=== PATIENT | male | born 1995 | race Caucasian/White ===

== ENCOUNTER 2019-07-02 10:29 | Emergency (ER) | payer SELFPAY ==
[2019-07-02] VITALS (10 sets, daily range): BP systolic 152–180; BP diastolic 98–123; PULSE 93–105; RESP 17–20; TEMP 36.8; O2SAT 96–100; BMI 41.8
--- NOTE | 2019-07-02 10:38 | CT_ITS ---
WS: [id number] CT ABDOMEN PELVIS TECHNIQUE: Noncontrast CT of the abdomen and pelvis with coronal and sagittal reformatted images. CLINICAL INFORMATION: right flank pain COMPARISON: None. DLP: 1825.[address] scans at [facility] use at least one of these dose optimization techniques: automat ed exposure control; mA and/or kV adjustment per patient size (includes targeted exams where dose is matched to clinical indication); or iterative reconstruction. FINDINGS: Noncontrast liver is normal. Normal gallbladder. Noncontrast spleen is normal. Normal GE junction. Jasmyn ng bases are well aerated. Noncontrast pancreas is unremarkable. Adrenal glands are normal. Mild right hydronephrosis with inflammatory stranding. Mild right ureterectasis with inflammatory str anding about the right ureter. Ureter is dilated down to the UVJ. No visualized obstructing ureteral calculi. Calculus may have recently passed. Bladder is decompressed. No visualized calculi in the melo dder. Left kidney and ureter are normal. No hydronephrosis in the left kidney. Normal caliber abdominal aorta. No abdominal lymphadenopathy. No pelvic lymphadenopathy. Normal sigmo id colon. Normal appendix. Incidental fat-containing umbilical hernia. CT/CT kidney stone [id number] IMPRESSION: 1. Mild right hydronephrosis with inflammatory stranding about the right kidne y. Mild right ureterectasis with inflammatory stranding about the right ureter. Ureter is dilated down to the UVJ although no obstructing calculi visualized. Obstructing calculus likely recently passed. 2. Normal left kidney and ureter. Normal bladder. 3. Normal appendix.
--- NOTE | 2019-07-02 10:39 | ED_ITS ---
HPI - Abdominal Pain General: Chief Complaint: Abdominal Pain Stated Complaint: RIGHT SIDE AND GROIN PAIN Time Seen by Provider: 07/02/19 10:38 Source: patient Mode of arrival: ambulatory Limitations: no limitations Review of Systems General: Reports: 10 or more systems reviewed and unremarkable except in HPI and below PFSH ED PFSH: Social History Smoking and tobacco status: never smoked Current gender identity: Female Physical Exam Const: COMMON NORMALS: no apparent distress and oriented x3 GENERAL APPEARANCE: cooperative HENMT: COMMON NORMALS: normocephalic, TM's normal bilaterally and external nose normal HEAD & SCALP: normal to inspection and normocephalic NOSE: external nose normal TYMPANIC MEMBRANE: TM's normal bilaterally MOUTH: oral and palatal mucosa normal THROAT: posterior oropharynx normal Eye: GENERAL EYE: normal appearance of both eyes Neck/C-Spine: COMMON NORMALS: full ROM Lymph: LYMPHATIC: no lymphadenopathy noted Chest: COMMONS NORMALS: inspection of chest normal Resp: COMMON NORMALS: normal respiratory effort EFFORT & INSPECTION: Yes able to speak in complete sentences Cardio: COMMON NORMALS: regular rate and regular rhythm RATE: regular rate RHYTHM: regular rhythm GI: COMMON NORMALS: non-tender : COMMON NORMALS: Yes no CVA tenderness BLADDER/KIDNEY EXAM: Yes no CVA tenderness Back/Pelvis: COMMON NORMALS: no CVA tenderness and thoracic and lumbar spine normal to inspection Extremity: COMMON NORMALS: normal to inspection Neuro: COMMON NORMALS: oriented x3 and moves all extremities Psych: COMMON NORMALS: mental status grossly normal and cooperative Skin: COMMON NORMALS: no rashes or lesions noted GENERAL SKIN EXAM: no rashes or lesions noted Course Vital Signs: Vital signs: Vital Signs Temperature 98.3 F 07/02/19 10:37 Pulse Rate 95 07/02/19 10:37 Respiratory Rate 20 H 07/02/19 10:37 Blood Pressure 179/123 07/02/19 10:37 Pulse Oximetry 99 07/02/19 10:37 Coding Level of Care Code ED Work Station Support Specialist for Eulalio Nathan
[2019-07-02 10:47] LABS: Basophils % 0.2 %; Eosinophils % 0.3 %; Hematocrit 47.8 % (42.0-52.0); Hemoglobin 16.4 g/dL (11.7-16.6); Lymphocytes # 1.6 10^3/uL (0.8-4.8); Lymphocytes % 12.3 %; Mean Corpuscular HGB Conc 34.3 g/dL (30.0-36.0); Mean Corpuscular Hemoglobin 28.7 pg (28.0-34.0); Mean Corpuscular Volume 83.6 fL (80-94); Mean Platelet Volume 10.8 fL (7.4-10.4); Monocytes # 0.3 10^3/uL (0.2-0.9); Monocytes % 2.6 %; Neutrophils % 84.2 %; Nucleated Red Blood Cells % 0 %; Platelet Count 295 10^3/cmm (130-400); Red Blood Count 5.72 10^6/uL (4.1-5.3); Red Cell Distribution Width 11.9 % (12.1-15.1); White Blood Count 13.1 10^3/uL (4.0-10.0)
--- NOTE | 2019-07-02 10:49 | ED_ITS ---
Documented by User: Ghulam Moulton DO 07/02/19 14:53 HPI - Abdominal Pain General: Chief Complaint: Abdominal Pain Stated Complaint: RIGHT SIDE AND GROIN PAIN Time Seen by Provider: 07/02/19 10:38 History of Present Illness: HPI narrative: 23 yo male present to the ER with onset of R flank pain radiatiing into the R groin began suddenly this AM. HE denies any hematuria, pain is worse with urination. He has not previosuly had kidney stones. No other recent illnesses. Denies resp illnes symtpoms, cough or fever. MD elicited complaint: flank pain Pertinent past history: none Onset (ago): hour(s) Pain Consistency: constant Location: R flank Severity: severe Pain scale (0-10): 10 Quality: stabbing and sharp Radiation: other (R groin) Associated Symptoms: Reports dysuria; Denies bloating, chills, coffee ground emesis, constipation, diarrhea, fever(s), hematochezia, hematemesis, melena, nausea and vomiting Review of Systems Const: Denies: fever, chills, body aches, change in appetite, fatigue or malaise ENMT: Denies: throat pain, ear pain, nasal discharge or nasal congestion Card: Denies: chest pain, edema, shortness of breath on exertion or shortness of breath when lying down Resp: Denies: shortness of breath, productive cough or non-productive cough GI: Denies: abdominal pain, nausea, vomiting, vomiting blood, coffee grounds in vomit, diarrhea, constipation, bloating, blood in stool or black tarry stool : Reports: flank pain and painful urination; Denies: urinary frequency or urinary urgency Skin/Breast: Denies: rash or itching [facility] ED PFSH: Social History (Updated 07/02/19 @ 14:52 by Ghulam Moulton DO) Smoking and tobacco status: never smoked Current gender identity: Male Physical Exam Const: COMMON NORMALS: no apparent distress GENERAL APPEARANCE: cooperative and comfortable ORIENTATION/CONSCIOUSNESS: Yes awake, Yes oriented to person, Yes oriented to place and Yes oriented to time HENMT: COMMON NORMALS: normocephalic, head/scalp atraumatic, hearing grossly normal bilaterally, external ears normal, EAC's normal, TM's normal bilaterally, nasal mucous membranes and turbinates normal, moist oral mucous membranes and oropharynx normal HEAD & SCALP: normocephalic and atraumatic NOSE: nasal mucous membranes and turbinates normal EXTERNAL EAR: Yes external ears normal EXTERNAL AUDITORY CANAL: EAC's normal TYMPANIC MEMBRANE: TM's normal bilaterally Eye: COMMON NORMALS: PERRL, EOMs intact bilaterally, conjunctivae normal and no scleral icterus CONJUNCTIVA: Yes conjunctivae normal PUPIL: Yes PERRL Neck/C-Spine: COMMON NORMALS: full ROM, no lymphadenopathy, supple and no JVD Lymph: LYMPHATIC: no lymphadenopathy noted and no lymphedema noted Resp: COMMON NORMALS: normal respiratory effort, no retractions, no use of accessory muscles and clear to auscultation bilaterally AUSCULTATION: clear to auscultation bilaterally Cardio: COMMON NORMALS: no JVD, regular rate, regular rhythm and no murmurs RATE: regular rate RHYTHM: regular rhythm GI: COMMON NORMALS: soft to palpation and no hepatosplenomegaly AUSCULTATION: Yes normoactive bowel sounds PALPATION: Yes soft, No tender, No guarding and Yes no hepatosplenomegaly : BLADDER/KIDNEY EXAM: Yes CVA tenderness Back/Pelvis: GENERAL BACK: Yes CVA tenderness CVA tenderness: right Extremity: COMMON NORMALS: normal to inspection, normal capillary refill, no clubbing, cyanosis or edema, no calf tenderness and no pedal edema Neuro: SENSORIUM/ORIENTATION: Yes oriented to person, Yes oriented to place and Yes oriented to time Skin: COMMON NORMALS: no rashes or lesions noted GENERAL SKIN EXAM: no rashes or lesions noted Course Vital Signs: Vital signs: Vital Signs Temperature 98.3 F 07/02/19 10:37 Pulse Rate 105 H 07/02/19 13:23 Respiratory Rate 18 07/02/19 13:23 Blood Pressure 163/98 07/02/19 13:23 Pulse Oximetry 100 07/02/19 13:23 MDM - Abdominal Pain MDM Narrative: Medical decision making narrative: Pt present with symtpoms typical for nephrolithiasis CT is pending. CAre turned over to Dr. Araujo at change of shift. Lab Data: Labs: Lab Results 07/02/19 07/02/19 07/02/19 Range/Units 10:40 10:40 10:59 WBC 13.1 H (4.0-10.0) 10^3/ uL RBC 5.72 H (4.1-5.3) 10^6/u L Hgb 16.4 (11.7-16.6) g/dL Hct 47.8 (42.0-52.0) % MCV 83.6 (80-94) fL MCH 28.7 (28.0-34.0) pg MCHC 34.3 (30.0-36.0) g/dL RDW 11.9 L (12.1-15.1) % Plt Count 295 (130-400) 10^3/c mm MPV 10.8 H (7.4-10.4) fL Neut % (Auto) 84.2 % Lymph % (Auto) 12.3 % [place] % (Auto) 2.6 % Eos % (Auto) 0.3 % Baso % (Auto) 0.2 % Neut # (Auto) 11.0 H (1.8-7.7) 10^3/u L Lymph # (Auto) 1.6 (0.8-4.8) 10^3/u L [place] # (Auto) 0.3 (0.2-0.9) 10^3/u L Eos # (Auto) 0.0 (0.0-0.8) 10^3/u L Baso # (Auto) 0.0 (0.0-0.1) 10^3/u L Nucleated RBC % (a uto) 0 % Nucleated RBCs # 0.0 /100WBC Sodium 138 (136-145) mmol/L Potassium 3.6 (3.5-5.1) mmol/L Chloride 103 (98-107) mmol/L Carbon Dioxide 20 L (22-29) mmol/L Anion Gap 18.6 (5-19) BUN 10 (6-20) mg/dL Creatinine 1.0 (0.7-1.2) mg/dL GFR Calculation 91.0 (90-130) mL/min Glucose 140 H (65-115) mg/dL Calculated Osmolal ity 284 L (285-295) mOsm/k g Calcium 9.5 (8.5-10.5) mg/dL Total Bilirubin 0.4 (0.15-1.2) mg/dL AST 23 (0-40) U/L ALT 55 H (0-41) U/L Alkaline Phosphata se 51 (40-130) IU/L Total Protein 8.1 (6.6-8.7) g/dL Albumin 4.6 (3.5-5.2) g/dL Globulin 3.5 (1.3-4.6) g/dL Lipase 21 (13-60) U/L Urine Color Yellow (Yellow) Urine Appearance Clear (CLEAR) Urine pH 6.0 (5-7) Ur Specific Gravit y 1.020 (1.005-1.030) Urine Protein Neg (Negative) Urine Glucose (UA) Norm (Normal) Urine Ketones Negative (Negative) Urine Blood Neg (Negative) Urine Nitrate Negative (Negative) Urine Bilirubin Neg (NEGATIVE) Urine Urobilinogen Norm (Negative) mg/dL Ur Leukocyte Rosa Maria ase Negative (Negative) Discharge Plan Discharge Patient Disposition: Home, Self-Care Clinical Impression: Colic, ureteral, Acquired hydroureter HTN (hypertension) Qualifiers: Hypertension type: unspecified Qualified Code(s): I10 - Essential (primary) hypertension Condition: Stable Prescriptions: New hydrocodone-acetaminophen 7.5-325 mg tablet 1 tab PO Q6H PRN (Reason: pain) Qty: 10 RF: 0 Zofran 4 mg tablet 4 mg PO Q8H PRN (Reason: nausea and vomiting) 5 Days Qty: 15 RF: 0 No Action amitriptyline 10 mg Tablet 30 mg PO BEDTIME RF: 0 Topamax 100 mg Tablet 100 mg PO DAILY RF: 0 Referrals: Yannick Reeves MD [Physician] - 1-3 days Discharge Diet: Advance as tolerated Discharge Activity: Resume usual activity Patient Instructions: Kidney Stones (ED) Activity Restrictions/Additional Instructions: follow up with PCP in 1-2 days. Drink plenty of fluids, case management will get you set up with Dr Reeves for follow up, return if worse, any problem, any change. Monitor your bp daily and write it down and show it to your pcp Discharge Date/Time: 07/02/19 13:22 Sign Out Sign Out Data: Patient Sign Out occurred on 07/02/19 at 12:46. Patient's care was discussed, and care was transferred from Ghulam Moulton DO to Jo Willingham DO. Sign Out Comment: R flank pain, hydroneprhosis on CT, radiology reading pending Last updated by Ghulam Moulton DO at 07/02/19 12:45 Coding Level of Care Code ED Director Of Career Resources for Chg Fwd Exam Comprehensive Documented by User: Jo Araujo DO 07/02/19 12:51 HPI - Abdominal Pain General: Chief Complaint: Abdominal Pain Stated Complaint: RIGHT SIDE AND GROIN PAIN Time Seen by Provider: 07/02/19 10:38 PFSH ED PFSH: Social History (Updated 07/02/19 @ 14:52 by Ghulam Moulton DO) Smoking and tobacco status: never smoked Current gender identity: Male Course Vital Signs: Vital signs: Vital Signs Temperature 98.3 F 07/02/19 10:37 Pulse Rate 105 H 07/02/19 13:23 Respiratory Rate 18 07/02/19 13:23 Blood Pressure 163/98 07/02/19 13:23 Pulse Oximetry 100 07/02/19 13:23 MDM - Abdominal Pain MDM Narrative: Medical decision making narrative: 1245: I accepted this pt from Dr Moulton and his ct shows likely recently passed ureterolithiasis. He has no signs of uti, The stone appears to have passed already but he has hydro so I will get him a f/u with Dr Cartwright. I will send him home with something for pain as he will likely have pain a few more days. He will need to keep drinking plenty of fluids. Pt understands and will return if anything worsens. He is also quite hypertensive so I have given him some clonidine. It has already improved some with pain relief, Lab Data: Attestation: I reviewed the patient's lab results. Labs: Lab Results 07/02/19 07/02/19 07/02/19 Range/Units 10:40 10:40 10:59 WBC 13.1 H (4.0-10.0) 10^3/ uL RBC 5.72 H (4.1-5.3) 10^6/u L Hgb 16.4 (11.7-16.6) g/dL Hct 47.8 (42.0-52.0) % MCV 83.6 (80-94) fL MCH 28.7 (28.0-34.0) pg MCHC 34.3 (30.0-36.0) g/dL RDW 11.9 L (12.1-15.1) % Plt Count 295 (130-400) 10^3/c mm MPV 10.8 H (7.4-10.4) fL Neut % (Auto) 84.2 % Lymph % (Auto) 12.3 % [place] % (Auto) 2.6 % Eos % (Auto) 0.3 % Baso % (Auto) 0.2 % Neut # (Auto) 11.0 H (1.8-7.7) 10^3/u L Lymph # (Auto) 1.6 (0.8-4.8) 10^3/u L [place] # (Auto) 0.3 (0.2-0.9) 10^3/u L Eos # (Auto) 0.0 (0.0-0.8) 10^3/u L Baso # (Auto) 0.0 (0.0-0.1) 10^3/u L Nucleated RBC % (a uto) 0 % Nucleated RBCs # 0.0 /100WBC Sodium 138 (136-145) mmol/L Potassium 3.6 (3.5-5.1) mmol/L Chloride 103 (98-107) mmol/L Carbon Dioxide 20 L (22-29) mmol/L Anion Gap 18.6 (5-19) BUN 10 (6-20) mg/dL Creatinine 1.0 (0.7-1.2) mg/dL GFR Calculation 91.0 (90-130) mL/min Glucose 140 H (65-115) mg/dL Calculated Osmolal ity 284 L (285-295) mOsm/k g Calcium 9.5 (8.5-10.5) mg/dL Total Bilirubin 0.4 (0.15-1.2) mg/dL AST 23 (0-40) U/L ALT 55 H (0-41) U/L Alkaline Phosphata se 51 (40-130) IU/L Total Protein 8.1 (6.6-8.7) g/dL Albumin 4.6 (3.5-5.2) g/dL Globulin 3.5 (1.3-4.6) g/dL Lipase 21 (13-60) U/L Urine Color Yellow (Yellow) Urine Appearance Clear (CLEAR) Urine pH 6.0 (5-7) Ur Specific Gravit y 1.020 (1.005-1.030) Urine Protein Neg (Negative) Urine Glucose (UA) Norm (Normal) Urine Ketones Negative (Negative) Urine Blood Neg (Negative) Urine Nitrate Negative (Negative) Urine Bilirubin Neg (NEGATIVE) Urine Urobilinogen Norm (Negative) mg/dL Ur Leukocyte Rosa Maria ase Negative (Negative) Imaging Data ^: CT Abd/Pel: Radiologist's impression: Signed Patient: Pantera Dhaliwal #: [id number] : 1995Acct#:[id number] Age/Sex: [address] [place] [address] Date: 07/02/19 Loc: ERRoom/Bed: Attending Dr: Ordering Provider/Ordering MD: Cesario Young NP Date of Service: 07/02/19 Procedure(s): CT kidney stone 61092 Accession Number(s): [id number] Report Number: [id number] WS: [id number] CT ABDOMEN PELVIS TECHNIQUE: Noncontrast CT of the abdomen and pelvis with coronal and sagittal reformatted images. CLINICAL INFORMATION: right flank pain COMPARISON: None. DLP: 1825.[address] scans at [facility] use at least one of these dose optimization techniques: automated exposure control; mA and/or kV adjustment per patient size (includes targeted exams where dose is matched to clinical indication); or iterative reconstruction. FINDINGS: Noncontrast liver is normal. Normal gallbladder. Noncontrast spleen is normal. Normal GE junction. Lung bases are well aerated. Noncontrast pancreas is unremarkable. Adrenal glands are normal. Mild right hydronephrosis with inflammatory stranding. Mild right ureterectasis with inflammatory stranding about the right ureter. Ureter is dilated down to the UVJ. No visualized obstructing ureteral calculi. Calculus may have recently passed. Bladder is decompressed. No visualized calculi in the bladder. Left kidney and ureter are normal. No hydronephrosis in the left kidney. Normal caliber abdominal aorta. No abdominal lymphadenopathy. No pelvic lymphadenopathy. Normal sigmoid colon. Normal appendix. Incidental fat- containing umbilical hernia. CT/CT kidney stone [id number] IMPRESSION: 1. Mild right hydronephrosis with inflammatory stranding about the right kidney. Mild right ureterectasis with inflammatory stranding about the right ureter. Ureter is dilated down to the UVJ although no obstructing calculi visualized. Obstructing calculus likely recently passed. 2. Normal left kidney and ureter. Normal bladder. 3. Normal appendix. Dictated By:Justin Vaughn MD Signed By:Justin Vaughn MDSigned Date/Time:07/02/19 1137 Discharge Plan Discharge Patient Disposition: Home, Self-Care Clinical Impression: Colic, ureteral, Acquired hydroureter HTN (hypertension) Qualifiers: Hypertension type: unspecified Qualified Code(s): I10 - Essential (primary) hypertension Condition: Stable Prescriptions: New hydrocodone-acetaminophen 7.5-325 mg tablet 1 tab PO Q6H PRN (Reason: pain) Qty: 10 RF: 0 Zofran 4 mg tablet 4 mg PO Q8H PRN (Reason: nausea and vomiting) 5 Days Qty: 15 RF: 0 No Action amitriptyline 10 mg Tablet 30 mg PO BEDTIME RF: 0 Topamax 100 mg Tablet 100 mg PO DAILY RF: 0 Referrals: Yannick Reeves MD [Physician] - 1-3 days Discharge Diet: Advance as tolerated Discharge Activity: Resume usual activity Patient Instructions: Kidney Stones (ED) Activity Restrictions/Additional Instructions: follow up with PCP in 1-2 days. Drink plenty of fluids, case management will get you set up with Dr Reeves for follow up, return if worse, any problem, any change. Monitor your bp daily and write it down and show it to your pcp Discharge Date/Time: 07/02/19 13:22 Sign Out Sign Out Data: Patient Sign Out occurred on 07/02/19 at 12:46. Patient's care was discussed, and care was transferred from Ghulam Moulton DO to Jo Willingham DO. Sign Out Comment: R flank pain, hydroneprhosis on CT, radiology reading pending Last updated by Ghulam Moulton DO at 07/02/19 12:45 Coding Level of Care Code ED Director Of Career Resources for Chg Fwd Exam Comprehensive
[2019-07-02] MEDS: ondansetron 2 mg/ML SDV 2 mL 4 MG IVP (10:52)
[2019-07-02] MEDS: morphine 4 mg/mL SDV 1 mL IVP ×2 (10:53→11:41)
[2019-07-02 11:07] LABS: Add Urine Microscopic? NO
[2019-07-02 11:07] LABS: Alanine Aminotransferase 55 U/L (0-41); Albumin Level 4.6 g/dL (3.5-5.2); Alkaline Phosphatase 51 IU/L (40-130); Anion Gap 18.6 (5-19); Aspartate Amino Transferase 23 U/L (0-40); Blood Urea Nitrogen 10 mg/dL (6-20); Calcium 9.5 mg/dL (8.5-10.5); Carbon Dioxide 20 mmol/L (22-29); Chloride 103 mmol/L (98-107); Globulin 3.5 g/dL (1.3-4.6); Glucose 140 mg/dL (65-115); Lipase 21 U/L (13-60); Osmolality Calculated 284 mOsm/kg (285-295); Potassium 3.6 mmol/L (3.5-5.1); Sodium 138 mmol/L (136-145); Total Bilirubin 0.4 mg/dL (0.15-1.2); Total Protein 8.1 g/dL (6.6-8.7)
[2019-07-02 11:09] LABS: Urine Appearance Clear (CLEAR); Urine Color Yellow (Yellow)
[2019-07-02 11:10] LABS: Bilirubin Urine Neg (NEGATIVE); Blood Urine Neg (Negative); Glucose Urine UA Norm (Normal); Ketones Urine Negative (Negative); Leukocyte Esterase Urine Negative (Negative); Nitrate Urine Negative (Negative); Protein Urine Neg (Negative); Urobilinogen Urine Norm (Negative)
[2019-07-02] MEDS: fentaNYL 50 mcg/mL INJ 2mL 25 MCG IVP (12:19)
[2019-07-02] MEDS: ketorolac 30 mg/mL INJ IVP (12:20)
[2019-07-02] MEDS: cloNIDine 0.1 mg Tablet 0.3 MG PO (12:54)
--- NOTE | 2019-07-02 13:28 | DCPLANNER ---
manager customer was asked to see patient due to no insurance and no primary care physician. manager customer spoke with patient, gave him both of the personal financial advisor applications for the hospital to fill out and turn in. manager customer also spoke with patient about getting established with a primary care physician, patient stated that he would like to get established with someone. manager customer called the office of Dr. Wilson, spoke with Estela, a follow up appointment was scheduled for Friday, July 05, 2019 at 9:[address] Wilson. manager customer told the clinic that patient did not have insurance at this time, and that he has the personal financial advisor paperwork to fill out and turn in. manager customer informed patient of the scheduled appointment, and stressed the importance of attending the appointment, and not no showing. manager customer told patient that if he could not attend the appointment to call and cancel the appointment.
== END 2019-07-02 13:22 | disposition home or self-care (01) ==
PROVIDERS: Nurse Practitioner Family; Emergency Provider Emergency Medicine
DX: N13.4 Hydroureter (principal); N23 Unspecified renal colic; I10 Essential (primary) hypertension
CPT/HCPCS: 12345; 74176; 80053; 81003; 83690; 85025; 96374; 96375; 96376; 99283; 99284; J1885; J2270; J2405; J3010

== ENCOUNTER 2019-10-06 21:36 | Emergency (ER) | payer SELFPAY ==
[2019-10-06 21:58] VITALS: BP 142/94; PULSE 94; RESP 16; TEMP 37.3; O2SAT 98; BMI 39.7
== END 2019-10-06 23:20 ==
PROVIDERS: Emergency Provider Emergency Medicine
DX: Z53.21 Procedure and treatment not carried out due to patient leaving prior to being seen by health care provider (principal)
CPT/HCPCS: 99281

== ENCOUNTER → 2019-11-14 14:49 | Outpatient (BNVA) | payer SELFPAY | PROVIDERS: PCP Family Medicine; Visit Provider Family Medicine | DX: I10 Essential (primary) hypertension (principal); Z68.39 Body mass index [BMI] 39.0-39.9, adult | CPT/HCPCS: 80053; 80061; 82043; 85025 ==

== ENCOUNTER 2020-05-03 13:11 | Emergency (ER) | payer SELFPAY ==
[2020-05-03 13:16] VITALS: BP 153/94; PULSE 87; RESP 18; TEMP 36.8; O2SAT 100; BMI 39.7
--- NOTE | 2020-05-03 13:20 | XRR_ITS ---
PROCEDURE INFORMATION: Exam: XR Left Wrist Exam date and time: 05/03/2020 1:21 PM Age: 24 years old Clinical indication: Injury or trauma; Fall; Blunt trauma (contusions or hematomas); Shoulder; Left TECHNIQUE: Imaging protocol: XR Left wrist. Views: 3 or more views. COMPARISON: No relevant prior studies available. FINDINGS: Bones/joints: Negative for acute bony abnormality. Soft tissues: Normal. XR/XR wrist LT min 3V* [id number] IMPRESSION: No acute findings.
--- NOTE | 2020-05-03 13:20 | XRR_ITS ---
PROCEDURE INFORMATION: Exam: XR Left Ribs with PA Chest, 3 Views Exam date and time: 05/03/2020 1:21 PM Age: 24 years old Clinical indication: Injury or trauma; Fall; Rib area, left side; Blunt trauma TECHNIQUE: Imaging protocol: XR Left ribs 3 views with PA chest. COMPARISON: No relevant prior studies available. FINDINGS: Lungs: Unremarkable. No consolidation. Pleural spaces: Unremarkable. No pleural effusion. No pneumothorax. Heart/Mediastinum: Unremarkable. No cardiomegaly. Bones/joints: Unremarkable. XR/XR ribs LT mn 3V w CXR1V [id number] IMPRESSION: No acute findings.
--- NOTE | 2020-05-03 13:24 | XRR_ITS ---
PROCEDURE INFORMATION: Exam: XR Left Shoulder Exam date and time: 05/03/2020 1:25 PM Age: 24 years old Clinical indication: Injury or trauma; Fall; Blunt trauma (contusions or hematomas); Shoulder; Left TECHNIQUE: Imaging protocol: XR Left shoulder. Views: 2 or more views. COMPARISON: No relevant prior studies available. FINDINGS: Bones/joints: Negative for acute bony abnormality. Soft tissues: Normal. XR/XR shoulder LT min 2V* [id number] IMPRESSION: No acute findings.
--- NOTE | 2020-05-03 13:25 | W.ED.FALL ---
HPI - Fall General: Chief Complaint: Fall Stated Complaint: FELL/MULTIPLE INJURIES Time Seen by Provider: 05/03/20 13:21 Source: patient Mode of arrival: ambulatory Limitations: no limitations History of Present Illness: HPI Narrative: 24-year-old male states he slipped on snow roughly 30 minutes an hour ago. He states he landed on his left side and also hit his head. He has had a headache along with left shoulder and wrist pain. States he rates pain a 6 out of 10. Denies any loss conscious. Denies any neck pain. Denies any lower extremity pain. complaint: fall Onset (ago): hour(s) Associated symptoms-after fall: Reports chest pain and headache(s); Denies abdominal pain or neck pain Review of Systems Const: Denies: fever(s), chills, body aches or change in appetite Eyes: Denies: blurry vision or eye discomfort ENMT: Denies: throat pain or dental pain Card: Reports: chest pain Resp: Denies: dyspnea GI: Denies: abdominal pain, nausea, vomiting or diarrhea : Denies: dysuria Musc: Reports: joint pain; Denies: neck pain or back pain Skin/Breast: Denies: rash Neuro: Reports: headache(s) Psych: Denies: depression Marty/Lymph: Denies: easy bruising All/Imm: Denies: urticaria PFSH ED PFSH: Medical History (Updated 05/03/20 @ 14:45 by Elo Goldman MD) Asthma Chronic migraine Essential hypertension Surgical History No pertinent past surgical history Family History Other CAD (coronary artery disease) Cancer Diabetes Social History Smoking and tobacco status: never smoked Alcohol intake: current Alcohol intake frequency: holidays/special occasions only Current gender identity: Male Physical Exam Const: COMMON NORMALS: no acute distress, patient oriented x3 and healthy appearing HENMT: COMMON NORMALS: normocephalic and atraumatic HEAD & SCALP: normocephalic and atraumatic Eye: COMMON NORMALS: Equal, round and reactive pupils present and EOMs intact bilaterally PUPIL: Yes Equal, round and reactive pupils present Neck/C-Spine: COMMON NORMALS: full ROM and supple Chest: COMMONS NORMALS: normal inspection of the chest and normal palpation of entire chest wall Resp: COMMON NORMALS: normal respiratory effort, No retractions, No use of accessory muscles and clear to auscultation bilaterally AUSCULTATION: clear to auscultation bilaterally Cardio: COMMON NORMALS: regular rate, regular rhythm and No murmurs present (Cardio) RATE: regular rate RHYTHM: regular rhythm GI: COMMON NORMALS: Normal to inspection, nondistended, normoactive bowel sounds present, Soft to palpation, non-tender and no masses PALPATION: Yes Soft to palpation Extremity: COMMON NORMALS: normal to inspection and full ROM NARRATIVE EXTREMITY EXAM: Some tenderness over his left shoulder and wrist with no obvious deformity Neuro: COMMON NORMALS: patient oriented x3, moves all extremities and no focal motor deficits Psych: COMMON NORMALS: mental status grossly normal, Normal thought process present and cooperative THOUGHT PROCESS: Normal thought process present Skin: COMMON NORMALS: no rashes or lesions noted and no wounds GENERAL SKIN EXAM: no rashes or lesions noted Course Vital Signs: Vital signs: Vital Signs Temperature 98.2 F 05/03/20 13:16 Pulse Rate 87 05/03/20 13:16 Respiratory Rate 18 05/03/20 13:16 Blood Pressure 153/94 05/03/20 13:16 Pulse Oximetry 100 05/03/20 13:16 MDM - Fall MDM Narrative: Medical decision making narrative: Pj presents here with head injury along with shoulder sprain from a fall. His x-ray and CT are all normal. He is well-appearing here and is stable for discharge. We will place him on Robaxin along with Naprosyn. Imaging Data^: xr left shoulder: Attestation: I personally reviewed and interpreted this imaging study as follows: My impression: no acute abnormalities xr l wrist: Attestation: I personally reviewed and interpreted this imaging study as follows: My impression: no acute fx xr l ribs: Attestation: I personally reviewed and interpreted this imaging study as follows: My impression: no acute abnormalities CT Head: Radiologist's impression: [address] [address] [address] Scan Report Signed Patient: Octavio Dhaliwal Unit #: [id number] : 1995 [place] [address]#:[id number] Age/Sex: 24 / M ADM Date: 05/03/20 Loc: ER Room/Bed: Attending Dr: Ordering Provider/Ordering MD: Elo Goldman MD Date of Service: 05/03/20 Procedure(s): CT head wo con* [id number] Accession Number(s): [id number] Report Number: [id number] PROCEDURE INFORMATION: Exam: CT Head Without Contrast Exam date and time: 05/03/2020 2:00 PM Age: 24 years old Clinical indication: Injury or trauma; Fall; Blunt trauma (contusions or hematomas) TECHNIQUE: Imaging protocol: Computed tomography of the head without contrast. Radiation optimization: All CT scans at this facility use at least one of these dose optimization techniques: automated exposure control; mA and/or kV adjustment per patient size (includes targeted exams where dose is matched to clinical indication); or iterative reconstruction. COMPARISON: CT head wo con* [id number] 06/05/2017 1:50 PM RADIATION DOSE METRICS: Total DLP (mGy-cm): 768.41 FINDINGS: Brain: Normal. No hemorrhage. Unremarkable white matter. No mass effect. Cerebral ventricles: No ventriculomegaly. Bones/joints: Unremarkable. No acute fracture. Paranasal sinuses: There is moderate right inferior frontal mucosal thickening. There is opacification of left anterior ethmoid air cells. Mastoid air cells: Visualized mastoid air cells are well aerated. Soft tissues: Unremarkable. CT/CT head wo con* [id number] IMPRESSION: No acute hemorrhage or calvarial fracture. Discharge Plan Discharge Patient Disposition: Home Clinical Impression: Fall Qualifiers: Encounter type: initial encounter Qualified Code(s): W19.XXXA - Unspecified fall, initial encounter CHI (closed head injury) Qualifiers: Encounter type: initial encounter Qualified Code(s): S09.90XA - Unspecified injury of head, initial encounter Shoulder sprain Qualifiers: Encounter type: initial encounter Shoulder sprain type: unspecified sprain Laterality: left Qualified Code(s): S43.402A - Unspecified sprain of left shoulder joint, initial encounter Condition: Stable Prescriptions: New Robaxin-750 750 mg tablet 750 mg PO Q6H Qty: 30 RF: 0 Naprosyn 500 mg tablet 500 mg PO BID PRN (Reason: pain) Qty: 20 RF: 0 No Action lisinopril-hydrochlorothiazide 20-12.5 mg tablet 1 tab PO DAILY Qty: 90 RF: 1 Discharge Orders: Discharge ED (Routine); Ordered 05/03/20 Ordered By: Elo Goldman Referrals: Amada Wilson DO [Primary Care Provider] - 1-3 days Discharge Diet: Advance as tolerated Discharge Activity: Resume usual activity Patient Instructions: Minor Head Injury (ED) Coding Level of Care Code ED Phys Asst for Eulalio Fwd Exam Comprehensive
[2020-05-03] MEDS: HYDROcodone-acetaminophen 5-325 mg Tablet 1 TAB PO (13:38)
[2020-05-03 14:53] VITALS: BP 131/86; PULSE 78; RESP 16; O2SAT 99
== END 2020-05-03 14:53 | disposition home or self-care (01) ==
PROVIDERS: Emergency Provider Emergency Medicine; PCP Family Medicine
DX: S09.8XXA Other specified injuries of head, initial encounter (principal); S43.402A Unspecified sprain of left shoulder joint, initial encounter; I10 Essential (primary) hypertension; W00.0XXA Fall on same level due to ice and snow, initial encounter
CPT/HCPCS: 70450; 71101; 73030; 73110; 99283

== ENCOUNTER 2020-07-06 15:00 | Emergency (ER) | payer SELFPAY ==
[2020-07-06 15:07] VITALS: BP 139/94; PULSE 96; RESP 18; TEMP 36; O2SAT 99; BMI 39.7
--- NOTE | 2020-07-06 15:16 | XR_ITS ---
WS: [id number] Exam: XR chest 1V portable [id number] Date/Time of Exam: 07/06/2020 3:16 PM Reason For Exam: chest pain Findings: The lungs are clear and fully expanded. Costophrenic angles are sharp. No infiltrates. Bronchovascula r relief appears normal. Cardiac silhouette is unremarkable. Bony elements are intact. XR/XR chest 1V portable [id number] IMPRESSION: Unremarkable chest radiograph.
--- NOTE | 2020-07-06 15:16 | ECG_ITS ---
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
--- NOTE | 2020-07-06 17:16 | ECG_ITS ---
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
[2020-07-06 17:18] LABS: Basophils # 0.1 10^3/uL (0.0-0.1); Basophils % 0.7 %; Eosinophils # 0.4 10^3/uL (0.0-0.8); Eosinophils % 3.2 %; Hematocrit 50.1 % (42.0-52.0); Hemoglobin 16.3 g/dL (11.7-16.6); Lymphocytes # 2.7 10^3/uL (0.8-4.8); Lymphocytes % 23.4 %; Mean Corpuscular HGB Conc 32.5 g/dL (30.0-36.0); Mean Corpuscular Hemoglobin 28.7 pg (28.0-34.0); Mean Corpuscular Volume 88.2 fL (80-94); Mean Platelet Volume 11.3 fL (7.4-10.4); Monocytes # 0.6 10^3/uL (0.2-0.9); Monocytes % 5.4 %; Neutrophils # 7.77 10^3/uL (1.8-7.7); Nucleated Red Blood Cells % 0 %; Platelet Count 321 10^3/cmm (130-400); Red Blood Count 5.68 10^6/uL (4.1-5.3); Red Cell Distribution Width 11.6 % (12.1-15.1); White Blood Count 11.6 10^3/uL (4.0-10.0)
[2020-07-06 17:47] LABS: Alanine Aminotransferase 35 U/L (0-41); Albumin Level 4.4 g/dL (3.5-5.2); Alkaline Phosphatase 49 IU/L (40-130); Anion Gap 14.1 (5-19); Aspartate Amino Transferase 19 U/L (0-40); Blood Urea Nitrogen 13 mg/dL (6-20); Calcium 9.1 mg/dL (8.5-10.5); Carbon Dioxide 25 mmol/L (22-29); Chloride 100 mmol/L (98-107); Globulin 2.7 g/dL (1.3-4.6); Glomerular Filtration Rate 136.3 mL/min (90-130); Glucose 85 mg/dL (65-115); Osmolality Calculated 279 mOsm/kg (285-295); Potassium 4.1 mmol/L (3.5-5.1); Sodium 135 mmol/L (136-145); Total Bilirubin 0.4 mg/dL (0.15-1.2); Total Protein 7.1 g/dL (6.6-8.7)
[2020-07-06] MEDS: aspirin 81 mg Chew Tablet 324 MG PO (18:25)
[2020-07-06] MEDS: nitroglycerin 1 gm/inch oint Pkt 0.5 INCH TOPICAL (18:25)
[2020-07-06 18:31] VITALS: BP 130/88; PULSE 89; O2SAT 99
[2020-07-06 18:35] LABS: Troponin(5th) Baseline 6 ng/L (0-15)
[2020-07-06 19:35] LABS: Troponin 5 2HR Delta 0 ABS# (0-10)
--- NOTE | 2020-07-06 20:36 | W.ED.CHESTPA ---
HPI - Chest Pain General: Chief Complaint: Chest Pain Stated Complaint: Active Chest Pain Time Seen by Provider: 07/06/20 17:55 Source: patient Mode of arrival: ambulatory Limitations: no limitations History of Present Illness: HPI narrative: Patient is a 24-year-old male with no prior cardiac history and past medical history of hypertension that is well controlled. He takes lisinopril hydrochlorothiazide for blood pressure. He presents to the emergency department with left-sided chest pain that started a few hours ago and is radiating to both arms. He did not have any dizziness or shortness of breath. He just does not feel all right. He has had similar symptoms in the past. complaint: chest pain Onset (ago): hour(s) (4) Timing of current episode: constant Prior episodes: No Onset: during rest Pain location: left chest Pain radiation: right arm and left arm Severity: moderate Quality: heaviness Relieving factors: nothing Exacerbating factors: nothing Associated symptoms: Deny abdominal pain, diaphoresis, dyspnea, fever(s), leg edema, nausea, palpitations, sense of impending doom, syncope or vomiting Treatment prior to arrival: none Review of Systems General: Reports: 10 or more systems reviewed and unremarkable except in HPI and below Const: Denies: fever(s) or diaphoresis Card: Denies: palpitations or syncope Resp: Denies: dyspnea GI: Denies: abdominal pain, nausea or vomiting [facility] ED PFSH: Medical History Asthma Chronic migraine Essential hypertension Surgical History No pertinent past surgical history Family History Other CAD (coronary artery disease) Cancer Diabetes Social History Smoking and tobacco status: never smoked Alcohol intake: current Alcohol intake frequency: holidays/special occasions only Current gender identity: Male Physical Exam Const: COMMON NORMALS: no acute distress, average body habitus, patient oriented x3, no limitations, healthy appearing, alert and well nourished HENMT: COMMON NORMALS: normocephalic, atraumatic and moist oral mucous membranes HEAD & SCALP: normocephalic and atraumatic Neck/C-Spine: COMMON NORMALS: no meningeal signs and no JVD Chest: COMMONS NORMALS: normal inspection of the chest and normal palpation of entire chest wall Resp: COMMON NORMALS: normal respiratory effort, No retractions, No use of accessory muscles, clear to auscultation bilaterally and percussion normal AUSCULTATION: clear to auscultation bilaterally PERCUSSION: percussion normal Cardio: COMMON NORMALS: no JVD, regular rate, regular rhythm, S1 normal heart sound present, S2 normal heart sound present, No gallops present (Cardio), No clicks present (Cardio), No murmurs present (Cardio), No rub (Cardio) and Peripheral pulses 2+ throughout RATE: regular rate RHYTHM: regular rhythm HEART SOUNDS: S1 normal heart sound present and S2 normal heart sound present PERIPHERAL PULSES: Peripheral pulses 2+ throughout GI: COMMON NORMALS: Normal to inspection, nondistended, normoactive bowel sounds present, Soft to palpation, non-tender, No hepatosplenomegaly present, no masses and no bruits PALPATION: Yes Soft to palpation and Yes No hepatosplenomegaly present Extremity: COMMON NORMALS: normal to inspection, full ROM, capillary refill normal, no calf tenderness and no pedal edema Neuro: COMMON NORMALS: patient oriented x3 SENSORIUM/ORIENTATION: Yes alert MENINGEAL SIGNS: Yes no meningeal signs Course Reevaluation(s): Reevaluation #1: Discussed his lab and imaging findings with him. Negative for acute findings. Evaluation is unremarkable and unlikely to be cardiac chest pain. We will discharge him home with no orders. He voiced understanding and he is in agreement with the plan. Time: 20:36 Vital Signs: Vital signs: Vital Signs Temperature 96.8 F L 07/06/20 15:07 Pulse Rate 88 07/06/20 20:51 Respiratory Rate 16 07/06/20 20:51 Blood Pressure 135/85 07/06/20 20:51 Pulse Oximetry 98 07/06/20 20:51 MDM - Chest Pain MDM Narrative: Medical decision making narrative: 24-year-old male who presents to the emergency department with chest pain. Evaluation in the emergency department is unremarkable. He has a low heart score. We will discharge him home with no new orders. Medical Records: Attestation: I reviewed the patient's medical records. Lab Data: Attestation: I reviewed the patient's lab results. Labs: Lab Results 07/06/20 07/06/20 07/06/20 Range/Units 16:55 16:55 16:55 WBC 11.6 H (4.0-10.0) 10^3/ uL RBC 5.68 H (4.1-5.3) 10^6/u L Hgb 16.3 (11.7-16.6) g/dL Hct 50.1 (42.0-52.0) % MCV 88.2 (80-94) fL MCH 28.7 (28.0-34.0) pg MCHC 32.5 (30.0-36.0) g/dL RDW 11.6 L (12.1-15.1) % Plt Count 321 (130-400) 10^3/c mm MPV 11.3 H (7.4-10.4) fL Neut % (Auto) 67.0 % Lymph % (Auto) 23.4 % [place] % (Auto) 5.4 % Eos % (Auto) 3.2 % Baso % (Auto) 0.7 % Neut # (Auto) 7.77 H (1.8-7.7) 10^3/u L Lymph # (Auto) 2.7 (0.8-4.8) 10^3/u L [place] # (Auto) 0.6 (0.2-0.9) 10^3/u L Eos # (Auto) 0.4 (0.0-0.8) 10^3/u L Baso # (Auto) 0.1 (0.0-0.1) 10^3/u L Nucleated RBC % (a uto) 0 % Nucleated RBCs # 0.0 /100WBC Sodium 135 L (136-145) mmol/L Potassium 4.1 (3.5-5.1) mmol/L Chloride 100 (98-107) mmol/L Carbon Dioxide 25 (22-29) mmol/L Anion Gap 14.1 (5-19) BUN 13 (6-20) mg/dL Creatinine 0.7 (0.7-1.2) mg/dL GFR Calculation 136.3 H (90-130) mL/min Glucose 85 (65-115) mg/dL Calculated Osmolal ity 279 L (285-295) mOsm/k g Calcium 9.1 (8.5-10.5) mg/dL Total Bilirubin 0.4 (0.15-1.2) mg/dL AST 19 (0-40) U/L ALT 35 (0-41) U/L Alkaline Phosphata se 49 (40-130) IU/L Troponin T Baselin e 6 (0-15) ng/L Troponin T 120 Min council (0-15) ng/L Delta Troponin T (0-10) ABS# Total Protein 7.1 (6.6-8.7) g/dL Albumin 4.4 (3.5-5.2) g/dL Globulin 2.7 (1.3-4.6) g/dL 07/06/20 Range/Units 18:55 WBC (4.0-10.0) 10^3/ uL RBC (4.1-5.3) 10^6/u L Hgb (11.7-16.6) g/dL Hct (42.0-52.0) % MCV (80-94) fL MCH (28.0-34.0) pg MCHC (30.0-36.0) g/dL RDW (12.1-15.1) % Plt Count (130-400) 10^3/c mm MPV (7.4-10.4) fL Neut % (Auto) % Lymph % (Auto) % [place] % (Auto) % Eos % (Auto) % Baso % (Auto) % Neut # (Auto) (1.8-7.7) 10^3/u L Lymph # (Auto) (0.8-4.8) 10^3/u L [place] # (Auto) (0.2-0.9) 10^3/u L Eos # (Auto) (0.0-0.8) 10^3/u L Baso # (Auto) (0.0-0.1) 10^3/u L Nucleated RBC % (a uto) % Nucleated RBCs # /100WBC Sodium (136-145) mmol/L Potassium (3.5-5.1) mmol/L Chloride (98-107) mmol/L Carbon Dioxide (22-29) mmol/L Anion Gap (5-19) BUN (6-20) mg/dL Creatinine (0.7-1.2) mg/dL GFR Calculation (90-130) mL/min Glucose (65-115) mg/dL Calculated Osmolal ity (285-295) mOsm/k g Calcium (8.5-10.5) mg/dL Total Bilirubin (0.15-1.2) mg/dL AST (0-40) U/L ALT (0-41) U/L Alkaline Phosphata se (40-130) IU/L Troponin T Baselin e (0-15) ng/L Troponin T 120 Min council 6.00 (0-15) ng/L Delta Troponin T 0 (0-10) ABS# Total Protein (6.6-8.7) g/dL Albumin (3.5-5.2) g/dL Globulin (1.3-4.6) g/dL Imaging Data^: CXR: Attestation: I personally reviewed and interpreted this imaging study as follows: Radiologist's impression: [address] [address]TGph ReportSigned Patient: Pantera Dhaliwal #: [id number]: 1995Acct#:[id number]/Sex: M Date: 07/06/20Loc: ERRoom/Bed:Attending Dr: Ordering Provider/Ordering MD: Ania Paz Date of Service: 07/06/20 Procedure(s): XR chest 1V portable [id number] Accession Number(s): [id number] Report Number: [id number] WS: [id number] Exam: XR chest 1V portable [id number] Date/Time of Exam: 07/06/2020 3:16 PM Reason For Exam: chest pain Findings: The lungs are clear and fully expanded. Costophrenic angles are sharp. No infiltrates. Bronchovascular relief appears normal. Cardiac silhouette is unremarkable. Bony elements are intact. XR/XR chest 1V portable [id number] IMPRESSION: Unremarkable chest radiograph. Dictated By:Louisigned By:Katheryn Goyal Date/Time:041556DD/ 1556 EKG Data^: EKG 1: Attestation: I personally reviewed and interpreted this EKG as follows: EKG interpretation date: 07/06/20 EKG interpretation time: 15:06 Prior EKG tracings: not available for review Interpretation: Sinus rhythm. Heart rate 91 bpm. Normal axis. No ST changes. 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1995 Requested By: Ania Paz Order Number: [id number] Reading MD: MITCH REILLY Measurements Intervals [place] Rate: 84 P: 38 [place]: 128 QRS: 49 QRSD: 99 T: 33 QT: 336 QTc: 399 Interpretive Statements SINUS RHYTHM NONSPECIFIC T-WAVE ABNORMALITY INTERPRETATION BASED ON A DEFAULT AGE OF 40 YEARS Compared to ECG 07/06/2020 15:06:09 No significant changes Electronically Signed On 07-06-2020 21:24:41 CDT by MITCH REILLY [id number] Dictated By:Mitch Reilly MDSigned By:Mitch Reilly MDSigned Date/Time:07/06/202125DD/ 48 Discharge Plan Discharge Patient Disposition: Home Clinical Impression: Chest pain, non-cardiac Condition: Stable Prescriptions: Continued lisinopril-hydrochlorothiazide 20-12.5 mg tablet 1 tab PO DAILY@1500 RF: 0 Discharge Orders: Discharge ED (Routine); Ordered 07/06/20 Ordered By: Meghana Whitney Referrals: Amada Wilson DO [Primary Care Provider] - 1-3 days Discharge Diet: Usual diet Discharge Activity: Increase activity as tolerated Patient Instructions: Noncardiac Chest Pain (ED) Activity Restrictions/Additional Instructions: Return for any new or worsening symptoms. Follow-up with your primary care provider within 3 days. Continue home medications as prescribed. Coding Level of Care Code ED Glass Deposition Tender for Eulalio Nathan
[2020-07-06 20:51] VITALS: BP 135/85; PULSE 88; RESP 16; O2SAT 98
== END 2020-07-06 20:49 | disposition home or self-care (01) ==
PROVIDERS: Physician Assistant; Emergency Provider Family Medicine; PCP Family Medicine
DX: R07.89 Other chest pain (principal); I10 Essential (primary) hypertension
CPT/HCPCS: 36415; 71045; 80053; 84484; 85025; 93005; 99283

== ENCOUNTER → 2020-09-15 10:40 | Outpatient (BNVA) | payer SELFPAY | PROVIDERS: PCP Family Medicine; Visit Provider Family Medicine | DX: I10 Essential (primary) hypertension (principal); R53.83 Other fatigue; R00.2 Palpitations; F41.9 Anxiety disorder, unspecified | CPT/HCPCS: 84443 ==

== ENCOUNTER 2021-05-04 13:29 | Emergency (ER) | payer OTHER, SELFPAY ==
[2021-05-04 13:41] VITALS: BP 156/110; PULSE 91; RESP 16; TEMP 36.8; O2SAT 97; BMI 40.1
[2021-05-04] MEDS: tetanus-dipt-pertussis 0.5 mL SDV IM (14:00)
--- NOTE | 2021-05-04 14:00 | W.ED.WOUNDLC ---
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 He avulsed the tip just past the nail. He is unsure of his last tetanus no other injuries. Onset (ago): minute(s) Location: other (Right thumb tip) Place: work Patient tetanus UTD: No Context: accidental Associated symptoms: Denies chills or fever(s) Review of Systems Const: Denies: fever(s), chills, body aches, change in appetite, fatigue or malaise PFSH ED PFSH: Medical History Asthma Chronic migraine Essential hypertension Surgical History No pertinent past surgical history Family History Other CAD (coronary artery disease) Cancer Diabetes Social History Smoking and tobacco status: never smoked Alcohol intake: former Year of sobriety/quit date alcohol: 2019 Former alcohol use details: [place] [place] Current gender identity: Male Physical Exam Const: COMMON NORMALS: no acute distress GENERAL APPEARANCE: cooperative and comfortable ORIENTATION/CONSCIOUSNESS: Yes awake, Yes oriented to person, Yes oriented to place and Yes oriented to time HENMT: COMMON NORMALS: normocephalic, atraumatic and hearing grossly normal bilaterally HEAD & SCALP: normocephalic and atraumatic Eye: COMMON NORMALS: Equal, round and reactive pupils present, EOMs intact bilaterally, conjunctivae normal and no scleral icterus CONJUNCTIVA: Yes conjunctivae normal PUPIL: Yes Equal, round and reactive pupils present Neck/C-Spine: COMMON NORMALS: no JVD Resp: COMMON NORMALS: normal respiratory effort, No retractions, No use of accessory muscles and clear to auscultation bilaterally AUSCULTATION: clear to auscultation bilaterally Cardio: COMMON NORMALS: no JVD, regular rate, regular rhythm and No murmurs present (Cardio) RATE: regular rate RHYTHM: regular rhythm Neuro: SENSORIUM/ORIENTATION: Yes oriented to person, Yes oriented to place and Yes oriented to time Skin: OTHER: Tip of the right thumb avulsed about 1/2 cm area round. Slight oozing. Course Vital Signs: Vital signs: Vital Signs Temperature 98.3 F 05/04/21 13:41 Pulse Rate 91 05/04/21 13:41 Respiratory Rate 16 05/04/21 13:41 Blood Pressure 156/110 05/04/21 13:41 Pulse Oximetry 97 05/04/21 13:41 MDM - Wound/Laceration Medical Decision Making Not amenable to sutures. Update tetanus. Xeroform gauze applied as well as tube gauze to create slight pressure with overlying 4 x 4. Discharge Plan Discharge Patient Disposition: Home Clinical Impression: Avulsion of finger tip Condition: Stable Prescriptions: New mupirocin 2 % ointment 1 applic topical BID Qty: 15 0RF No Action lisinopril 20 mg tablet 20 mg PO DAILY Qty: 90 1RF metoprolol tartrate 25 mg tablet 12.5 mg PO BID Qty: 90 1RF Discharge Orders: Discharge ED (Routine); Ordered 05/04/21 Ordered By: Ghulam Moulton Referrals: Amada Wilson DO [Primary Care Provider] - Discharge Diet: Usual diet Discharge Activity: Increase activity as tolerated Patient Instructions: Opioid Safety Activity Restrictions/Additional Instructions: Low up for wound care with your doctor in the next Coding Level of Care Code ED Director Selection And Administration for Chg Fwd Exam Detailed
== END 2021-05-04 14:23 | disposition home or self-care (01) ==
PROVIDERS: Emergency Provider Family Medicine; PCP Family Medicine
DX: S61.001A Unspecified open wound of right thumb without damage to nail, initial encounter (principal); W45.8XXA Other foreign body or object entering through skin, initial encounter; Y93.G1 Activity, food preparation and clean up; Y92.511 Restaurant or cafe as the place of occurrence of the external cause; Y99.0 Civilian activity done for income or pay; I10 Essential (primary) hypertension; Z23 Encounter for immunization
CPT/HCPCS: 90471; 90715; 99282

== ENCOUNTER 2021-07-08 23:27 | Emergency (ER) | payer SELFPAY ==
[2021-07-08 23:33] VITALS: BP 144/102; PULSE 98; RESP 18; TEMP 36.6; O2SAT 97; BMI 41.5
[2021-07-08 23:51] VITALS: BP 147/96; RESP 20; O2SAT 100
[2021-07-09 00:30] VITALS: BP 135/95; PULSE 80; O2SAT 99
--- NOTE | 2021-07-09 00:33 | CTR_ITS ---
PROCEDURE INFORMATION: Exam: CT Abdomen And Pelvis With Contrast Exam date and time: 07/09/2021 12:56 AM Age: 25 years old Clinical indication: Abdominal pain; Localized; Left upper quadrant (luq); Patient HX: C/O luq pain. ; Additional info: Abd pain TECHNIQUE: Imaging protocol: Computed tomography of the abdomen and pelvis with contrast. Radiation optimization: All CT scans at this facility use at least one of these dose optimization techniques: automated exposure control; mA and/or kV adjustment per patient size (includes targeted exams where dose is matched to clinical indication); or iterative reconstruction. Contrast material: OMNI 350; Contrast volume: 95 ml; Contrast route: INTRAVENOUS (IV); COMPARISON: CT kidney stone [id number] 07/02/2019 11:11 AM RADIATION DOSE METRICS: Total DLP (mGy-cm): 1875.21 FINDINGS: Liver: Normal. No mass. Gallbladder and bile ducts: Normal. No calcified stones. No ductal dilation. Pancreas: Normal. No ductal dilation. Spleen: Normal. No splenomegaly. Adrenal glands: Normal. No mass. Kidneys and ureters: Normal. No hydronephrosis. Stomach and bowel: Unremarkable. No obstruction. No mucosal thickening. Appendix: No evidence of appendicitis. Intraperitoneal space: Unremarkable. No free air. No significant fluid collection. Vasculature: Unremarkable. No abdominal aortic aneurysm. Lymph nodes: Unremarkable. No enlarged lymph nodes. Urinary bladder: Unremarkable as visualized. Reproductive: Unremarkable as visualized. Bones/joints: Unremarkable. No acute fracture. Soft tissues: Unremarkable. CT/CT abdomen pelvis w con* [id number] IMPRESSION: No acute findings.
--- NOTE | 2021-07-09 00:36 | ED_ITS ---
HPI - Abdominal Pain General: Chief Complaint: Abdominal Pain Stated Complaint: LT side pain Time Seen by Provider: 07/09/21 00:20 Source: patient Mode of arrival: ambulatory Limitations: no limitations History of Present Illness: 25-year-old male states been having left upper quadrant pain for the last day. He states the pain has been sharp in nature rates it a 4-5 out of 10 he states is worse with movement and palpation. He denies any vomiting or diarrhea denies any fevers. He states the pain is started earlier today and is worsened throughout the day. No history of abdominal surgeries Associated Symptoms: Denies chills, dysuria and fever(s) Review of Systems Const: Denies: fever(s), chills, body aches or change in appetite Eyes: Denies: blurry vision or eye discomfort ENMT: Denies: throat pain or dental pain Card: Denies: chest pain Resp: Denies: dyspnea GI: Reports: abdominal pain : Denies: dysuria Musc: Denies: neck pain or back pain Skin/Breast: Denies: rash Neuro: Denies: headache(s) Psych: Denies: depression Marty/Lymph: Denies: easy bruising All/Imm: Denies: urticaria PFSH ED PFSH: Medical History (Updated 07/09/21 @ 02:46 by Elo Goldman MD) Asthma Chronic migraine Essential hypertension Surgical History No pertinent past surgical history Family History Other CAD (coronary artery disease) Cancer Diabetes Social History Smoking and tobacco status: never smoked Alcohol intake: former Year of sobriety/quit date alcohol: 2019 Former alcohol use details: [place] [place] [employer] [place] Current gender identity: Male Physical Exam Const: COMMON NORMALS: no acute distress, patient oriented x3 and healthy appearing HENMT: COMMON NORMALS: normocephalic and atraumatic HEAD & SCALP: normocephalic and atraumatic Eye: COMMON NORMALS: Equal, round and reactive pupils present and EOMs intact bilaterally PUPIL: Yes Equal, round and reactive pupils present Neck/C-Spine: COMMON NORMALS: full ROM and supple Chest: COMMONS NORMALS: normal inspection of the chest and normal palpation of entire chest wall Resp: COMMON NORMALS: normal respiratory effort, No retractions, No use of accessory muscles and clear to auscultation bilaterally AUSCULTATION: clear to auscultation bilaterally Cardio: COMMON NORMALS: regular rate, regular rhythm and No murmurs present (Cardio) RATE: regular rate RHYTHM: regular rhythm GI: COMMON NORMALS: Normal to inspection, nondistended, normoactive bowel s ounds present, Soft to palpation and no masses PALPATION: Yes Soft to pal pation and Yes Tenderness to palpation present (GI) Details: LUQ Extremity: COMMON NORMALS: normal to inspection and full ROM Neuro: COMMON NORMALS: patient oriented x3, moves all extremities and no focal motor deficits Psych: COMMON NORMALS: mental status grossly normal, Normal thought process present and cooperative THOUGHT PROCESS: Normal thought process present Skin: COMMON NORMALS: no rashes or lesions noted and no wounds GENERAL SKIN EXAM: no rashes or lesions noted Course Vital Signs: Vital signs: Vital Signs Temperature 97.9 F 07/08/21 23:33 Pulse Rate 79 07/09/21 02:30 Respiratory Rate 20 H 07/09/21 02:30 Blood Pressure 135/79 07/09/21 02:30 Pulse Oximetry 98 07/09/21 02:30 MDM - Abdominal Pain Medical Decision Making Patient presents here with abdominal pain he does have some tenderness along his left chest wall actually could be some chest wall pain lab work and CT abdomen are normal here he stable for discharge follow-up with PCP and return if worsening Lab Data : 07/09/21 00:32 07/09/21 00:32 Labs/Radiology: Radiology Impressions Abdomen/Pelvis CT 07/09/21 00:33 IMPRESSION: No acute findings. Laboratory Results WBC 10.0 10^3/uL (4.0-10.0) 07/09/21 00:32 RBC 5.50 10^6/uL (4.1-5.3) H 07/09/21 00:32 Hgb 15.5 g/dL (11.7-16.6) 07/09/21 00:32 Hct 46.8 % (42.0-52.0) 07/09/21 00:32 MCV 85.1 fl (80-94) 07/09/21 00:32 MCH 28.2 pg (28.0-34.0) 07/09/21 00:32 MCHC 33.1 g/dL (30.0-36.0) 07/09/21 00:32 RDW 11.8 % (12.1-15.1) L 07/09/21 00:32 Plt Count 264 10^3/cmm (130-400) 07/09/21 00:32 MPV 11.3 fL (7.4-10.4) H 07/09/21 00:32 Neut % (Auto) 59.6 % 07/09/21 00:32 Lymph % (Auto) 31.1 % 07/09/21 00:32 [place] % (Auto) 5.3 % 07/09/21 00:32 Eos % (Auto) 2.9 % 07/09/21 00:32 Baso % (Auto) 0.8 % 07/09/21 00:32 Neut # (Auto) 5.96 10^3/uL (1.8-7.7) 07/09/21 00:32 Lymph # (Auto) 3.1 10^3/uL (0.8-4.8) 07/09/21 00:32 [place] # (Auto) 0.5 10^3/uL (0.2-0.9) 07/09/21 00:32 Eos # (Auto) 0.3 10^3/uL (0.0-0.8) 07/09/21 00:32 Baso # (Auto) 0.1 10^3/uL (0.0-0.1) 07/09/21 00:32 Nucleated RBC % (auto) 0 % 07/09/21 00: Nucleated RBCs # 0.0 /100WBC 07/09/21 00:32 Sodium 136 mmol/L (136-145) 07/09/21 00:32 Potassium 3.9 mmol/L (3.5-5.1) 07/09/21 00:32 Chloride 102 mmol/L (98-107) 07/09/21 00:32 Carbon Dioxide 24 mmol/L (22-29) 07/09/21 00:32 Anion Gap 13.9 (5-19) 07/09/21 00:32 BUN 14 mg/dL (6-20) 07/09/21 00:32 Creatinine 0.8 mg/dL (0.7-1.2) 07/09/21 00:32 GFR Calculation 116.0 mL/min (90-130) 07/09/21 00:32 Glucose 88 mg/dL (65-115) 07/09/21 00:32 Calculated Osmolality 282 mOsm/kg (285-295) L 07/09/21 00:32 Calcium 8.5 mg/dL (8.5-10.5) 07/09/21 00:32 Total Bilirubin 0.4 mg/dL (0.15-1.2) 07/09/21 00:32 AST 20 U/L (0-40) 07/09/21 00:32 ALT 34 U/L (0-41) 07/09/21 00:32 Alkaline Phosphatase 48 IU/L (40-130) 07/09/21 00:32 Total Protein 7.0 g/dL (6.6-8.7) 07/09/21 00:32 Albumin 4.6 g/dL (3.5-5.2) 07/09/21 00:32 Globulin 2.4 g/dL (1.3-4.6) 07/09/21 00:32 Lipase 28 U/L (13-60) 07/09/21 00:32 Discharge Plan Discharge Patient Disposition: Home Clinical Impression: Abdominal pain Condition: Stable Prescriptions: No Action lisinopril 20 mg tablet 20 mg PO DAILY Qty: 90 1RF metoprolol tartrate 25 mg tablet 12.5 mg PO BID Qty: 90 1RF mupirocin 2 % ointment 1 applic topical BID Qty: 15 0RF Discharge Orders: Discharge ED (Routine); Ordered 07/09/21 Ordered By: Elo Goldman Referrals: Amada Wilson DO [Primary Care Provider] - 1-3 days Discharge Diet: Advance as tolerated Discharge Activity: Resume usual activity Patient Instructions: Abdominal Pain (ED) Coding Level of Care Code ED Tissue Recovery Technician for Eulalio Fwd Exam Comprehensive
[2021-07-09 00:41] LABS: Basophils # 0.1 10^3/uL (0.0-0.1); Basophils % 0.8 %; Eosinophils # 0.3 10^3/uL (0.0-0.8); Eosinophils % 2.9 %; Hematocrit 46.8 % (42.0-52.0); Hemoglobin 15.5 g/dL (11.7-16.6); Lymphocytes # 3.1 10^3/uL (0.8-4.8); Lymphocytes % 31.1 %; Mean Corpuscular HGB Conc 33.1 g/dL (30.0-36.0); Mean Corpuscular Hemoglobin 28.2 pg (28.0-34.0); Mean Corpuscular Volume 85.1 fl (80-94); Mean Platelet Volume 11.3 fL (7.4-10.4); Monocytes # 0.5 10^3/uL (0.2-0.9); Monocytes % 5.3 %; Neutrophils # 5.96 10^3/uL (1.8-7.7); Neutrophils % 59.6 %; Nucleated Red Blood Cells % 0 %; Platelet Count 264 10^3/cmm (130-400); Red Cell Distribution Width 11.8 % (12.1-15.1)
[2021-07-09 00:52] VITALS: RESP 18
[2021-07-09] MEDS: morphine 4 mg/mL SDV 1 mL IVP (00:52)
[2021-07-09] MEDS: ondansetron 2 mg/ML SDV 2 mL 4 MG IVP (00:53)
[2021-07-09] MEDS: iohexol 350 mg/mL 100 mL Btl IV (00:54)
[2021-07-09 00:58] LABS: Alanine Aminotransferase 34 U/L (0-41); Albumin Level 4.6 g/dL (3.5-5.2); Alkaline Phosphatase 48 IU/L (40-130); Anion Gap 13.9 (5-19); Aspartate Amino Transferase 20 U/L (0-40); Blood Urea Nitrogen 14 mg/dL (6-20); Calcium 8.5 mg/dL (8.5-10.5); Carbon Dioxide 24 mmol/L (22-29); Chloride 102 mmol/L (98-107); Globulin 2.4 g/dL (1.3-4.6); Glucose 88 mg/dL (65-115); Lipase 28 U/L (13-60); Osmolality Calculated 282 mOsm/kg (285-295); Potassium 3.9 mmol/L (3.5-5.1); Sodium 136 mmol/L (136-145); Total Bilirubin 0.4 mg/dL (0.15-1.2)
[2021-07-09 02:30] VITALS: BP 135/79; PULSE 79; RESP 20; O2SAT 98
[2021-07-09 03:01] VITALS: BP 135/79; PULSE 70; RESP 20; O2SAT 99
== END 2021-07-09 03:03 | disposition home or self-care (01) ==
PROVIDERS: Nurse Practitioner Family; Emergency Provider Emergency Medicine; PCP Family Medicine
DX: R10.12 Left upper quadrant pain (principal)
CPT/HCPCS: 74177; 80053; 83690; 85025; 96374; 96375; 99284; J2270; J2405; Q9967

== ENCOUNTER 2021-10-22 21:37 | Emergency (ER) | payer SELFPAY ==
[2021-10-22 21:42] VITALS: BP 120/84; PULSE 94; RESP 18; TEMP 36.7; O2SAT 97; BMI 40.1
--- NOTE | 2021-10-22 21:49 | W.ED.SKABFB ---
HPI - Skin/Abscess/Foreign Bdy General: Chief complaint: Skin/Abscess/Foreign Body Stated complaint: Right shoulder pain Time Seen by Provider: 10/22/21 21:49 History of Present Illness: 25-year-old male patient comes in with a sore to his right posterior neck/shoulder area for the last 3 days. Patient appears nontoxic. Patient appears in mild pain. 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 Associated symptoms: Deny fever(s) Review of Systems Const: Denies: fever(s) Skin/Breast: Reports: new lesions [facility] ED PFSH: Medical History (Updated 10/22/21 @ 22:01 by CINDY Javier) Asthma Chronic migraine Essential hypertension Surgical History No pertinent past surgical history Family History Other CAD (coronary artery disease) Cancer Diabetes Social History Smoking and tobacco status: never smoked Alcohol intake: former Year of sobriety/quit date alcohol: 2019 Former alcohol use details: [place] [place] [employer] [place] Current gender identity: Male Physical Exam Const: COMMON NORMALS: alert HENMT: COMMON NORMALS: normocephalic HEAD & SCALP: normocephalic Neck/C-Spine: COMMON NORMALS: full ROM Resp: COMMON NORMALS: normal respiratory effort Cardio: COMMON NORMALS: regular rate RATE: regular rate GI: COMMON NORMALS: Soft to palpation PALPATION: Yes Soft to palpation Back/Pelvis: COMMON NORMALS: thoracic and lumbar spine normal to inspection Extremity: COMMON NORMALS: normal to inspection and full ROM Neuro: SENSORIUM/ORIENTATION: Yes alert Skin: LESIONS: lesion noted (Pustular lesion to the posterior neck with 2 cm of surrounding redness.) Course Vital Signs: Vital signs: Vital Signs Temperature 98.1 F 10/22/21 21:42 Pulse Rate 94 10/22/21 21:42 Respiratory Rate 18 10/22/21 21:42 Blood Pressure 120/84 10/22/21 21:42 Pulse Oximetry 97 10/22/21 21:42 Oxygen Delivery Me thod 08/12/22 21:42 MDM - Skin/Abscess/Foreign Bdy Medicial Decision Making 25-year-old male patient comes in with pain to the posterior neck and right shoulder area. On exam patient has a pustular lesion with surrounding redness to the right shoulder. Vital signs are normal. Differential diagnosis includes but not limited to abscess, cellulitis, folliculitis. Feel the patient probably has folliculitis and has 1 lesion that has developed some secondary cellulitis. We will start patient on Bactrim and to mupirocin ointment. Reviewed exam with patient with recommendations for treatment and follow-up. Recommend return to the ER for worsening symptoms. Patient and female significant other reported understanding. Discharge Plan Discharge Patient Disposition: Home Clinical Impression: Folliculitis Condition: Stable Prescriptions: New Bactrim DS 800-160 mg tablet 1 tab PO DAILY 7 Days Qty: 14 0RF mupirocin 2 % ointment 1 applic topical BID Qty: 22 0RF No Action lisinopril 20 mg tablet 20 mg PO DAILY Qty: 90 1RF metoprolol tartrate 25 mg tablet 12.5 mg PO BID Qty: 90 1RF mupirocin 2 % ointment 1 applic topical BID Qty: 15 0RF Discharge Orders: Discharge ED (Routine); Ordered 10/22/21 Ordered By: Cesario Young Referrals: Amada Wilson DO [Primary Care Provider] - Discharge Diet: Usual diet Discharge Activity: Increase activity as tolerated Patient Instructions: Folliculitis (ED) Activity Restrictions/Additional Instructions: Apply heat pack to the wound 4 times a day for 10-minute intervals. Apply antibiotic ointment to the wound twice a day until healed. Take oral antibiotics twice a day for 7 days. Monitor site for increasing redness, softness in the center, and increase in size. Return to the ER for these concerns. Follow-up with primary care in 3 to 5 days as needed. Coding Level of Care Code ED Grain Combiner for Eulalio Nathan
--- NOTE | 2021-10-22 21:54 | PC.NURSE ---
Pt. states that he has a red bump on right shoulder neck area that looks like a festered hair or acne. Pt. states that the spot has been there for a week.
[2021-10-22] MEDS: sulfamethoxazole-trimeth DS 160-800 mg Tablet 1 TAB PO (22:00)
[2021-10-22] MEDS: mupirocin oint 22 gm 1 APPLIC TOPICAL (22:00)
== END 2021-10-22 22:29 | disposition home or self-care (01) ==
PROVIDERS: Emergency Provider Nurse Practitioner Family; PCP Family Medicine
DX: L73.9 Follicular disorder, unspecified (principal); I10 Essential (primary) hypertension
CPT/HCPCS: 99283

== ENCOUNTER 2022-02-07 23:51 | Emergency (ER) | payer SELFPAY ==
[2022-02-07 23:55] VITALS: BP 149/99; PULSE 98; RESP 18; TEMP 36.5; O2SAT 99; BMI 41.5
--- NOTE | 2022-02-08 01:02 | CTR_ITS ---
PROCEDURE INFORMATION: Exam: CT Abdomen And Pelvis Without Contrast Exam date and time: 02/08/2022 1:07 AM Age: 26 years old Clinical indication: Abdominal pain; Localized; Left lower quadrant (llq); Patient HX: Llq pain with bloody stools; Additional info: Abd pain TECHNIQUE: Imaging protocol: Computed tomography of the abdomen and pelvis without contrast. Radiation optimization: All CT scans at this facility use at least one of these dose optimization techniques: automated exposure control; mA and/or kV adjustment per patient size (includes targeted exams where dose is matched to clinical indication); or iterative reconstruction. COMPARISON: CT abdomen pelvis w con* [id number] 07/09/2021 12:56 AM RADIATION DOSE METRICS: Total DLP (mGy-cm): 1305.23 FINDINGS: Liver: Normal. No mass. Gallbladder and bile ducts: Normal. No calcified stones. No ductal dilation. Pancreas: Normal. No ductal dilation. Spleen: A small splenule is noted.. No splenomegaly. Adrenal glands: Normal. No mass. Kidneys and ureters: Normal. No hydronephrosis. Stomach and bowel: Minimal thickening of the gastroesophageal junction [place]. Suggestion of subtle diverticular disease. Suggestion of mild colonic wall thickening. No evidence intestinal obstruction. Appendix: No evidence of appendicitis. Intraperitoneal space: Unremarkable. No free air. No significant fluid collection. Vasculature: Unremarkable. No abdominal aortic aneurysm. Lymph nodes: Unremarkable. No enlarged lymph nodes. Urinary bladder: Unremarkable as visualized. Reproductive: Unremarkable as visualized. Bones/joints: Unremarkable. No acute fracture. Soft tissues: Unremarkable. CT/CT abdomen pelvis wo con [id number] IMPRESSION: 1. Suspected mild colonic wall thickening may represent colitis in the appropriate clinical setting. 2. Otherwise, no acute CT findings in the abdomen or the pelvis.
--- NOTE | 2022-02-08 01:03 | W.ED.GENADLT ---
HPI - General Adult General: Chief complaint: Abdominal Pain Stated complaint: ABD Pain Time Seen by Provider: 02/07/22 23:53 Source: patient Mode of arrival: ambulatory Limitations: no limitations History of Present Illness: 26-year-old male states that he had abdominal cramping his left lower quadrant over the last 3 days. States he had some bright red blood in his stool that is lessening states it is very minimal today. States his pain is currently 3 out of 10 denies any worsening proving factors denies any vomiting denies any diarrhea. Associated symptoms: Deny chest pain, dyspnea, headache(s) or rash Review of Systems Const: Denies: fever(s), chills, body aches or change in appetite Eyes: Denies: blurry vision or eye discomfort ENMT: Denies: throat pain or dental pain Card: Denies: chest pain Resp: Denies: dyspnea GI: Reports: abdominal pain and hematochezia : Denies: dysuria Musc: Denies: neck pain or back pain Skin/Breast: Denies: rash Neuro: Denies: headache(s) Psych: Denies: depression Marty/Lymph: Denies: easy bruising All/Imm: Denies: urticaria PFSH ED PFSH: Medical History (Updated 02/08/22 @ 02:05 by Elo Goldman MD) Asthma Chronic migraine Essential hypertension Surgical History No pertinent past surgical history Family History Other CAD (coronary artery disease) Cancer Diabetes Social History Smoking and tobacco status: never smoked Alcohol intake: former Year of sobriety/quit date alcohol: 2019 Former alcohol use details: [place] [employer] [place] Current gender identity: Male Physical Exam Const: COMMON NORMALS: no acute distress, patient oriented x3 and healthy appearing HENMT: COMMON NORMALS: normocephalic and atraumatic HEAD & SCALP: normocephalic and atraumatic Eye: COMMON NORMALS: Equal, round and reactive pupils present and EOMs intact bilaterally PUPIL: Yes Equal, round and reactive pupils present Neck/C-Spine: COMMON NORMALS: full ROM and supple Chest: COMMONS NORMALS: normal inspection of the chest and normal palpation of entire chest wall Resp: COMMON NORMALS: normal respiratory effort, No retractions, No use of accessory muscles and clear to auscultation bilaterally AUSCULTATION: clear to auscultation bilaterally Cardio: COMMON NORMALS: regular rate, regular rhythm and No murmurs present (Cardio) RATE: regular rate RHYTHM: regular rhythm GI: COMMON NORMALS: Normal to inspection, nondistended, normoactive bowel sounds present, Soft to palpation, non-tender and no masses PALPATION: Yes Soft to palpation Extremity: COMMON NORMALS: normal to inspection and full ROM Neuro: COMMON NORMALS: patient oriented x3, moves all extremities and no focal motor deficits Psych: COMMON NORMALS: mental status grossly normal, Normal thought process present and cooperative THOUGHT PROCESS: Normal thought process present Skin: COMMON NORMALS: no rashes or lesions noted and no wounds GENERAL SKIN EXAM: no rashes or lesions noted Course Vital Signs: Vital signs: Vital Signs Temperature 97.7 F 02/07/22 23:55 Pulse Rate 98 02/07/22 23:55 Respiratory Rate 16 02/08/22 01:50 Blood Pressure 149/99 02/07/22 23:55 Pulse Oximetry 99 02/07/22 23:55 Oxygen Delivery Me thod 02/07/22 23:55 MDM - General Adult Medical Decision Making Patient presents here with abdominal pain CT does show colitis patient's blood work is otherwise normal we will place him on Cipro Flagyl he is stable for discharge he return if worsening. Lab Data 02/08/22 01:00 02/08/22 01:00 Radiology Impressions Abdomen/Pelvis CT 02/08/22 01:02 IMPRESSION: 1. Suspected mild colonic wall thickening may represent colitis in the appropriate clinical setting. 2. Otherwise, no acute CT findings in the abdomen or the pelvis. Laboratory Results WBC 10.3 10^3/uL (4.0-10.0) H 02/08/22 01:00 RBC 5.53 10^6/uL (4.1-5.3) H 02/08/22 01:00 Hgb 15.9 g/dL (11.7-16.6) 02/08/22 01:00 Hct 47.9 % (42.0-52.0) 02/08/22 01:00 MCV 86.6 fl (80-94) 02/08/22 01:00 MCH 28.8 pg (28.0-34.0) 02/08/22 01:00 MCHC 33.2 g/dL (30.0-36.0) 02/08/22 01:00 RDW 11.7 % (12.1-15.1) L 02/08/22 01:00 Plt Count 281 10^3/cmm (130-400) 02/08/22 01:00 MPV 10.9 fL (7.4-10.4) H 02/08/22 01:00 Neut % (Auto) 57.4 % 02/08/22 01:00 Lymph % (Auto) 30.4 % 02/08/22 01:00 [place] % (Auto) 6.5 % 02/08/22 01:00 Eos % (Auto) 4.5 % 02/08/22 01:00 Baso % (Auto) 0.9 % 02/08/22 01:00 Neut # (Auto) 5.90 10^3/uL (1.8-7.7) 02/08/22 01:00 Lymph # (Auto) 3.1 10^3/uL (0.8-4.8) 02/08/22 01:00 [place] # (Auto) 0.7 10^3/uL (0.2-0.9) 02/08/22 01:00 Eos # (Auto) 0.5 10^3/uL (0.0-0.8) 02/08/22 01:00 Baso # (Auto) 0.1 10^3/uL (0.0-0.1) 02/08/22 01:00 Nucleated RBC % (auto) 0 % 02/08/22 01:00 Nucleated RBCs # 0.0 /100WBC 02/08/22 01:00 Sodium 136 mmol/L (136-145) 02/08/22 01:00 Potassium 3.7 mmol/L (3.5-5.1) 02/08/22 01:00 Chloride 101 mmol/L (98-107) 02/08/22 01:00 Carbon Dioxide 23 mmol/L (22-29) 02/08/22 01:00 Anion Gap 15.7 (5-19) 02/08/22 01:00 BUN 12 mg/dL (6-20) 02/08/22 01:00 Creatinine 0.7 mg/dL (0.7-1.2) 02/08/22 01:00 GFR Calculation 134.3 mL/min (90-130) H 02/08/22 01:00 Glucose 88 mg/dL (65-115) 02/08/22 01:00 Calculated Osmolality 281 mOsm/kg (285-295) L 02/08/22 01:00 Calcium 9.3 mg/dL (8.5-10.5) 02/08/22 01:00 Total Bilirubin 0.4 mg/dL (0.15-1.2) 02/08/22 01:00 AST 22 U/L (0-40) 02/08/22 01:00 ALT 43 U/L (0-41) H 02/08/22 01:00 Alkaline Phosphatase 55 U/L (40-130) 02/08/22 01:00 Total Protein 7.2 g/dL (6.6-8.7) 02/08/22 01:00 Albumin 4.3 g/dL (3.5-5.2) 02/08/22 01:00 Globulin 2.9 g/dL (1.3-4.6) 02/08/22 01:00 Lipase 30 U/L (13-60) 02/08/22 01:00 Urine Color Yellow (Yellow) 02/08/22 02:05 Urine Appearance Clear (CLEAR) 02/08/22 02:05 Urine pH 5 (5-7) 02/08/22 02:05 Ur Specific [place] 1.030 (1.005-1.030) 02/08/22 02:05 Urine Protein Neg (Negative) 02/08/22 02:05 Urine Glucose (UA) Norm (Normal) 02/08/22 02:05 Urine Ketones Negative (Negative) 02/08/22 02:05 Urine Blood Neg (Negative) 02/08/22 02:05 Urine Nitrate Negative (Negative) 02/08/22 02:05 Urine Bilirubin Neg (Negative) 02/08/22 02:05 Urine Urobilinogen 1 mg/dL (Negative) H 02/08/22 02:05 Ur Leukocyte Esterase Negative (Negative) 02/08/22 02:05 Discharge Plan Discharge Patient Disposition: Home Clinical Impression: Colitis Condition: Stable Prescriptions: New hydrocodone-acetaminophen 5-325 mg tablet 1 tab PO Q6H PRN (Reason: pain) Qty: 14 0RF metronidazole 500 mg tablet 500 mg PO Q8H 7 Days Qty: 21 0RF Cipro 500 mg tablet 500 mg PO BID Qty: 14 0RF ondansetron 4 mg tablet,disintegrating 4 mg PO Q6H PRN (Reason: nausea and vomiting) Qty: 14 0RF No Action lisinopril 20 mg tablet 20 mg PO DAILY Qty: 90 1RF metoprolol tartrate 25 mg tablet 12.5 mg PO BID Qty: 90 1RF mupirocin 2 % ointment 1 applic topical BID Qty: 15 0RF mupirocin 2 % ointment 1 applic topical BID Qty: 22 0RF Discharge Orders: Discharge ED (Routine); Ordered 02/08/22 Ordered By: Elo Goldman Referrals: Amada Wilson DO [Primary Care Provider] - 1-3 days Discharge Diet: Advance as tolerated Discharge Activity: Resume usual activity Patient Instructions: Colitis (ED), Opioid Safety Coding Level of Care Code ED Head Trimmer for Chg Fwd Exam Comprehensive
[2022-02-08 01:09] LABS: Basophils # 0.1 10^3/uL (0.0-0.1); Basophils % 0.9 %; Eosinophils # 0.5 10^3/uL (0.0-0.8); Eosinophils % 4.5 %; Hematocrit 47.9 % (42.0-52.0); Hemoglobin 15.9 g/dL (11.7-16.6); Lymphocytes # 3.1 10^3/uL (0.8-4.8); Lymphocytes % 30.4 %; Mean Corpuscular HGB Conc 33.2 g/dL (30.0-36.0); Mean Corpuscular Hemoglobin 28.8 pg (28.0-34.0); Mean Corpuscular Volume 86.6 fl (80-94); Mean Platelet Volume 10.9 fL (7.4-10.4); Monocytes # 0.7 10^3/uL (0.2-0.9); Monocytes % 6.5 %; Neutrophils % 57.4 %; Nucleated Red Blood Cells % 0 %; Platelet Count 281 10^3/cmm (130-400); Red Blood Count 5.53 10^6/uL (4.1-5.3); Red Cell Distribution Width 11.7 % (12.1-15.1); White Blood Count 10.3 10^3/uL (4.0-10.0)
[2022-02-08 01:27] LABS: Alanine Aminotransferase 43 U/L (0-41); Albumin Level 4.3 g/dL (3.5-5.2); Alkaline Phosphatase 55 U/L (40-130); Aspartate Amino Transferase 22 U/L (0-40); Blood Urea Nitrogen 12 mg/dL (6-20); Calcium 9.3 mg/dL (8.5-10.5); Carbon Dioxide 23 mmol/L (22-29); Chloride 101 mmol/L (98-107); Globulin 2.9 g/dL (1.3-4.6); Glomerular Filtration Rate 134.3 mL/min (90-130); Glucose 88 mg/dL (65-115); Lipase 30 U/L (13-60); Osmolality Calculated 281 mOsm/kg (285-295); Sodium 136 mmol/L (136-145); Total Bilirubin 0.4 mg/dL (0.15-1.2); Total Protein 7.2 g/dL (6.6-8.7)
[2022-02-08 01:33] LABS: Anion Gap 15.7 (5-19); Potassium 3.7 mmol/L (3.5-5.1)
[2022-02-08 01:50] VITALS: RESP 16
[2022-02-08] MEDS: morphine 4 mg/mL SDV 1 mL IVP (01:50)
[2022-02-08] MEDS: ondansetron 2 mg/ML SDV 2 mL 4 MG IVP (01:50)
[2022-02-08 02:10] LABS: Add Urine Microscopic? NO; Charge for UA Resulting for Rev
[2022-02-08 02:16] LABS: Bilirubin Urine Neg (Negative); Blood Urine Neg (Negative); Glucose Urine UA Norm (Normal); Ketones Urine Negative (Negative); Leukocyte Esterase Urine Negative (Negative); Nitrate Urine Negative (Negative); Protein Urine Neg (Negative); Urine Appearance Clear (CLEAR); Urine Color Yellow (Yellow); Urobilinogen Urine 1 mg/dL (Negative); pH Urine 5 (5-7)
[2022-02-08 02:37] VITALS: BP 146/77; PULSE 82; RESP 14; O2SAT 97
== END 2022-02-08 02:37 | disposition home or self-care (01) ==
PROVIDERS: Nurse Practitioner Family; Emergency Provider Emergency Medicine; PCP Family Medicine
DX: K52.9 Noninfective gastroenteritis and colitis, unspecified (principal)
CPT/HCPCS: 74176; 80053; 81003; 83690; 85025; 96374; 96375; 99285; J2270; J2405

== ENCOUNTER 2022-02-14 14:05 | Emergency (ER) | payer SELFPAY ==
[2022-02-14 14:14] VITALS: BP 181/101; PULSE 87; RESP 18; TEMP 36.3; O2SAT 99
[2022-02-14 15:22] LABS: Basophils # 0.1 10^3/uL (0.0-0.1); Basophils % 0.6 %; Eosinophils # 0.2 10^3/uL (0.0-0.8); Eosinophils % 2.8 %; Hematocrit 48.7 % (42.0-52.0); Hemoglobin 16.4 g/dL (11.7-16.6); Lymphocytes % 25.7 %; Mean Corpuscular HGB Conc 33.7 g/dL (30.0-36.0); Monocytes # 0.4 10^3/uL (0.2-0.9); Monocytes % 4.9 %; Neutrophils # 5.16 10^3/uL (1.8-7.7); Neutrophils % 65.9 %; Nucleated Red Blood Cells % 0 %; Platelet Count 279 10^3/cmm (130-400); Red Blood Count 5.66 10^6/uL (4.1-5.3); Red Cell Distribution Width 11.8 % (12.1-15.1); White Blood Count 7.8 10^3/uL (4.0-10.0)
[2022-02-14 15:42] LABS: Alanine Aminotransferase 114 U/L (0-41); Albumin Level 4.4 g/dL (3.5-5.2); Alkaline Phosphatase 50 U/L (40-130); Anion Gap 13.4 (5-19); Aspartate Amino Transferase 52 U/L (0-40); Blood Urea Nitrogen 11 mg/dL (6-20); Calcium 9.7 mg/dL (8.5-10.5); Carbon Dioxide 27 mmol/L (22-29); Chloride 102 mmol/L (98-107); Globulin 3.1 g/dL (1.3-4.6); Glomerular Filtration Rate 134.3 mL/min (90-130); Glucose 99 mg/dL (65-115); Lipase 18 U/L (13-60); Osmolality Calculated 285 mOsm/kg (285-295); Potassium 4.4 mmol/L (3.5-5.1); Sodium 138 mmol/L (136-145); Total Bilirubin 0.6 mg/dL (0.15-1.2); Total Protein 7.5 g/dL (6.6-8.7)
[2022-02-14 15:45] LABS: Lactate (Lactic Acid level) 2.1 mmol/L (0.5-2.2)
[2022-02-14 16:29] VITALS: BP 150/106; PULSE 81; O2SAT 97
--- NOTE | 2022-02-14 16:29 | PC.NURSE ---
WHILE WITH PT IN LOBBY PT IS IN NAD.
--- NOTE | 2022-02-14 18:20 | CTR_ITS ---
PROCEDURE INFORMATION: Exam: CT Abdomen And Pelvis Without Contrast Exam date and time: 02/14/2022 6:38 PM Age: 26 years old Clinical indication: Pain; Other: Llq; Additional info: Abd pain TECHNIQUE: Imaging protocol: Computed tomography of the abdomen and pelvis without contrast. Axial, coronal and sagittal reformatted images were created and reviewed. Radiation optimization: All CT scans at this facility use at least one of these dose optimization techniques: automated exposure control; mA and/or kV adjustment per patient size (includes targeted exams where dose is matched to clinical indication); or iterative reconstruction. COMPARISON: CT abdomen pelvis [facility] [id number] 02/08/2022 1:07 AM RADIATION DOSE METRICS: Total DLP (mGy-cm): 1287.03 FINDINGS: Liver: Mild hepatic steatosis. Gallbladder and bile ducts: No radiodense gallstones. No biliary ductal dilatation. Pancreas: Unremarkable. Spleen: Unremarkable. Adrenal glands: Normal. No mass. Kidneys and ureters: No mass. No radiodense calculi. No hydronephrosis. Stomach and bowel: No bowel wall thickening. No obstruction. No pneumatosis. Appendix: Normal. Intraperitoneal space: No free fluid. No organized fluid collection. No free air. Vasculature: Unremarkable. No aneurysm. Lymph nodes: Small mesenteric lymph nodes, nonspecific in appearance. No pathologically enlarged lymph nodes. Urinary bladder: Unremarkable as visualized. Reproductive: Unremarkable. Bones/joints: No acute osseous abnormality. Soft tissues: Tiny, fat containing umbilical hernia. CT/CT abdomen pelvis [facility] [id number] IMPRESSION: 1. Limited noncontrast examination without CT evidence of acute intra-abdominal or pelvic pathology. 2. Additional findings, as above.
--- NOTE | 2022-02-14 18:26 | ED_ITS ---
HPI - Abdominal Pain General: Chief Complaint: Abdominal Pain Stated Complaint: possible colitis Time Seen by Provider: 02/14/22 18:15 Source: patient Mode of arrival: ambulatory Limitations: no limitations History of Present Illness: 26-year-old male who states he been having abdominal pain over the last week he was seen here a week ago has been on Cipro Flagyl for colitis he states that today his pain is worsened and sharp in nature on the left side denies any diarrhea has had some nausea denies any vomiting rates his pain a 6 out of 10 currently. Associated Symptoms: Reports nausea; Denies chills, dysuria and fever(s) Review of Systems Const: Denies: fever(s), chills, body aches or change in appetite Eyes: Denies: blurry vision or eye discomfort ENMT: Denies: throat pain or dental pain Card: Denies: chest pain Resp: Denies: dyspnea GI: Reports: abdominal pain and nausea : Denies: dysuria Musc: Denies: neck pain or back pain Skin/Breast: Denies: rash Neuro: Denies: headache(s) Psych: Denies: depression Marty/Lymph: Denies: easy bruising All/Imm: Denies: urticaria PFSH ED PFSH: Medical History (Updated 02/14/22 @ 19:01 by Elo Goldman MD) Asthma Chronic migraine Essential hypertension Surgical History No pertinent past surgical history Family History Other CAD (coronary artery disease) Cancer Diabetes Social History Smoking and tobacco status: never smoked Alcohol intake: former Year of sobriety/quit date alcohol: 2019 Former alcohol use details: [place] Current gender identity: Male Physical Exam Const: COMMON NORMALS: no acute distress, patient oriented x3 and healthy alexis earing HENMT: COMMON NORMALS: normocephalic and atraumatic HEAD & SCALP: normocephalic and atraumatic Eye: COMMON NORMALS: Equal, round and reactive pupils present and EOMs intact bilaterally PUPIL: Yes Equal, round and reactive pupils present Neck/C-Spine: COMMON NORMALS: full ROM and supple Chest: COMMONS NORMALS: normal inspection of the chest and normal palpation of entire chest wall Resp: COMMON NORMALS: normal respiratory effort, No retractions, No use of accessory muscles and clear to auscultation bilaterally AUSCULTATION: clear to auscultation bilaterally Cardio: COMMON NORMALS: regular rate, regular rhythm and No murmurs present (Cardio) RATE: regular rate RHYTHM: regular rhythm GI: COMMON NORMALS: Normal to inspection, nondistended, normoactive bowel sounds present, Soft to palpation, non-tender and no masses PALPATION: Yes Soft to palpation Extremity: COMMON NORMALS: normal to inspection and full ROM Neuro: COMMON NORMALS: patient oriented x3, moves all extremities and no focal motor deficits Psych: COMMON NORMALS: mental status grossly normal, Normal thought process present and cooperative THOUGHT PROCESS: Normal thought process present Skin: COMMON NORMALS: no rashes or lesions noted and no wounds GENERAL SKIN EXAM: no rashes or lesions noted Course Vital Signs: Vital signs: Vital Signs Temperature 97.3 F L 02/14/22 14:14 Pulse Rate 81 02/14/22 16:29 Respiratory Rate 18 02/14/22 14:14 Blood Pressure 150/106 02/14/22 16:29 Pulse Oximetry 97 02/14/22 16:29 MDM - Abdominal Pain Medical Decision Making Patient presents here with abdominal pain a CT scan here is improved blood work is normal he is stable for discharge at this time we will get him follow-up with surgery we will start him on Bentyl. Lab Data 02/14/22 15:14 02/14/22 15:14 Labs/Radiology: Radiology Impressions Abdomen/Pelvis CT 02/14/22 18:20 IMPRESSION: 1. Limited noncontrast examination without CT evidence of acute intra-abdominal or pelvic pathology. 2. Additional findings, as above. Laboratory Results WBC 7.8 10^3/uL (4.0-10.0) 02/14/22 15:14 RBC 5.66 10^6/uL (4.1-5.3) H 02/14/22 15:14 Hgb 16.4 g/dL (11.7-16.6) 02/14/22 15:14 Hct 48.7 % (42.0-52.0) 02/14/22 15:14 MCV 86.0 fl (80-94) 02/14/22 15:14 MCH 29.0 pg (28.0-34.0) 02/14/22 15:14 MCHC 33.7 g/dL (30.0-36.0) 02/14/22 15:14 RDW 11.8 % (12.1-15.1) L 02/14/22 15:14 Plt Count 279 10^3/cmm (130-400) 02/14/22 15:14 MPV 11.0 fL (7.4-10.4) H 02/14/22 15:14 Neut % (Auto) 65.9 % 02/14/22 15:14 Lymph % (Auto) 25.7 % 02/14/22 15:14 [place] % (Auto) 4.9 % 02/14/22 15:14 Eos % (Auto) 2.8 % 02/14/22 15:14 Baso % (Auto) 0.6 % 02/14/22 15:14 Neut # (Auto) 5.16 10^3/uL (1.8-7.7) 02/14/22 15:14 Lymph # (Auto) 2.0 10^3/uL (0.8-4.8) 02/14/22 15:14 [place] # (Auto) 0.4 10^3/uL (0.2-0.9) 02/14/22 15:14 Eos # (Auto) 0.2 10^3/uL (0.0-0.8) 02/14/22 15:14 Baso # (Auto) 0.1 10^3/uL (0.0-0.1) 02/14/22 15:14 Nucleated RBC % (auto) 0 % 02/14/22 15:14 Nucleated RBCs # 0.0 /100WBC 02/14/22 15:14 Sodium 138 mmol/L (136-145) 02/14/22 15:14 Potassium 4.4 mmol/L (3.5-5.1) 02/14/22 15:14 Chloride 102 mmol/L (98-107) 02/14/22 15:14 Carbon Dioxide 27 mmol/L (22-29) 02/14/22 15:14 Anion Gap 13.4 (5-19) 02/14/22 15:14 BUN 11 mg/dL (6-20) 02/14/22 15:14 Creatinine 0.7 mg/dL (0.7-1.2) 02/14/22 15:14 GFR Calculation 134.3 mL/min (90-130) H 02/14/22 15:14 Glucose 99 mg/dL (65-115) 02/14/22 15:14 Calculated Osmolality 285 mOsm/kg (285-295) 02/14/22 15:14 Lactate 2.1 mmol/L (0.5-2.2) 02/14/22 15:14 Calcium 9.7 mg/dL (8.5-10.5) 02/14/22 15:14 Total Bilirubin 0.6 mg/dL (0.15-1.2) 02/14/22 15:14 AST 52 U/L (0-40) H 02/14/22 15:14 ALT 114 U/L (0-41) H 02/14/22 15:14 Alkaline Phosphatase 50 U/L (40-130) 02/14/22 15:14 Total Protein 7.5 g/dL (6.6-8.7) 02/14/22 15:14 Albumin 4.4 g/dL (3.5-5.2) 02/14/22 15:14 Globulin 3.1 g/dL (1.3-4.6) 02/14/22 15:14 Lipase 18 U/L (13-60) 02/14/22 15:14 Discharge Plan Discharge Patient Disposition: Home Clinical Impression: Abdominal pain Qualifiers: Abdominal location: generalized Qualified Code(s): R10.84 - Generalized abdominal pain Condition: Stable Prescriptions: New dicyclomine 20 mg tablet 20 mg PO TID PRN (Reason: abdominal pain) Qty: 20 0RF No Action lisinopril 20 mg tablet 20 mg PO DAILY Qty: 90 1RF metoprolol tartrate 25 mg tablet 12.5 mg PO BID Qty: 90 1RF mupirocin 2 % ointment 1 applic topical BID Qty: 15 0RF mupirocin 2 % ointment 1 applic topical BID Qty: 22 0RF hydrocodone-acetaminophen 5-325 mg tablet 1 tab PO Q6H PRN (Reason: pain) Qty: 14 0RF metronidazole 500 mg tablet 500 mg PO Q8H 7 Days Qty: 21 0RF Cipro 500 mg tablet 500 mg PO BID Qty: 14 0RF ondansetron 4 mg tablet,disintegrating 4 mg PO Q6H PRN (Reason: nausea and vomiting) Qty: 14 0RF Discharge Orders: Discharge ED (Routine); Ordered 02/14/22 Ordered By: Elo Goldman Referrals: Mehdi Rivera MD [Physician] - 1-3 days Amada Wilson DO [Primary Care Provider] - Discharge Diet: Advance as tolerated Discharge Activity: Resume usual activity Patient Instructions: Abdominal Pain (ED), Pain Management Coding Level of Care Code ED Hose Cementer for Chg Fwd Exam Comprehensive
[2022-02-14] MEDS: ondansetron 2 mg/ML SDV 2 mL 4 MG IVP (19:20)
[2022-02-14] MEDS: morphine 4 mg/mL SDV 1 mL IVP (19:20)
--- NOTE | 2022-02-15 09:52 | DCPLANNER ---
Addendum entered by Shari Ayers 02/25/22 12:46: curriculum development manager received the following message from the general surgery clinic regarding follow up appointment: Called and spoke with TIMOTHY > stated patients knows to call us but hasn't... thanked her Mailing letter and FA packet On 02/23/22 @ 09:41 Jerel Gusman Wrote To Psychology Physician Front Off called patient & left message 02/23 On 02/22/22 @ 09:55 Jerel Gusman Wrote To Psychology Physician Front Off called patient and left message 02/22 On 02/18/22 @ 15:54 Thu Koenig Wrote To Psychology Physician Front Off Patient FA approved visit but patient will need to speak to them. Self pay $100 payment towards total bill On 02/15/22 @ 10:32 Jerel Gusman Wrote To Psychology Physician Front Off Patient has a balance of $21k, I am waiting to hear back from financial assistance on if patient already has something set up with them.. Original Note: curriculum development manager had message to schedule a follow up appointment for patient with general surgery. curriculum development manager sent patients information to the front office staff at general surgery. Patients information will be printed and reviewed. Clinic will call patient with appointment information.
== END 2022-02-14 19:30 | disposition home or self-care (01) ==
PROVIDERS: Emergency Medicine; Emergency Provider Emergency Medicine; PCP Family Medicine
DX: R10.84 Generalized abdominal pain (principal); I10 Essential (primary) hypertension
CPT/HCPCS: 36415; 74176; 80053; 83605; 83690; 85025; 96374; 96375; 99285; J2270; J2405

== ENCOUNTER 2022-08-02 11:26 | Emergency (ER) | payer SELFPAY ==
[2022-08-02 12:03] VITALS: BP 201/140; PULSE 84; O2SAT 99
--- NOTE | 2022-08-02 12:27 | W.ED.ABDPA2 ---
HPI - Abdominal Pain General: Chief Complaint: Abdominal Pain Stated Complaint: Abd Pain, Bloody stool Time Seen by Provider: 08/02/22 12:16 Source: patient Mode of arrival: ambulatory Limitations: no limitations History of Present Illness: Patient is a 26-year-old male who presents to ED today with complaint of lower abdominal pain and bloody stools. He states he first began noticing intermittent mild abdominal pains about 2 weeks ago but states symptoms have progressed into more constant comforts with increasing severity. He has noticed intermittent bright red blood in his stools. No rectal pain or painful defecation. No mass/bulges noted. He has not noticed any changes to the consistency of his stools. He is having some nausea without episodes of emesis. He is continuing to eat, drink, and pass flatulence. Denies urinary symptoms. No fevers. He states he does have a history of colitis that presented similarly. Never had any follow-up following that episode. Pertinent past history: other (colitis) Onset (ago): week(s) Pain Consistency: constant Location: RLQ and LLQ Severity: moderate Quality: cramping and sharp Radiation: none Migration to: no migration Exacerbating factors: nothing Relieving factors: nothing Associated Symptoms: Reports GI cramping, hematochezia and nausea; Denies chills, diarrhea, dysuria, fever(s), hematuria, hematemesis, melena and vomiting Review of Systems Const: Denies: fever(s), chills, body aches, fatigue or malaise Card: Denies: chest pain Resp: Denies: dyspnea GI: Reports: abdominal pain, nausea, GI cramping and hematochezia; Denies: vomiting, hematemesis, diarrhea or melena : Denies: flank pain, dysuria or hematuria Musc: Denies: neck pain, back pain, extremity pain or joint pain Skin/Breast: Denies: rash Neuro: Denies: headache(s) or dizziness PFSH ED PFSH: Medical History (Updated 08/02/22 @ 14:38 by AMINAH Fatima) Asthma Chronic migraine Essential hypertension Surgical History No pertinent past surgical history Family History Other CAD (coronary artery disease) Cancer Diabetes Social History Smoking and tobacco status: never smoked Alcohol intake: former Year of sobriety/quit date alcohol: 2019 Former alcohol use details: [place] OR [place] Substance/Drug Use: never Current gender identity: Male Physical Exam Const: COMMON NORMALS: no acute distress, patient oriented x3, no limitations and alert GENERAL APPEARANCE: cooperative NUTRITIONAL APPEARANCE: obese morbidly obese ORIENTATION/CONSCIOUSNESS: Yes awake, Yes oriented to person, Yes oriented to place and Yes oriented to time HENMT: COMMON NORMALS: normocephalic and atraumatic HEAD & SCALP: normal to inspection, normocephalic and atraumatic Neck/C-Spine: COMMON NORMALS: full ROM, no lymphadenopathy and supple Resp: COMMON NORMALS: normal respiratory effort and clear to auscultation bilaterally AUSCULTATION: clear to auscultation bilaterally Cardio: COMMON NORMALS: regular rate and regular rhythm RATE: regular rate RHYTHM: regular rhythm GI: COMMON NORMALS: Normal to inspection, nondistended, normoactive bowel sounds present, Soft to palpation and no masses INSPECTION: Yes normal to inspection AUSCULTATION: Yes normoactive bowel sounds PALPATION: Yes Soft to palpation, Yes Tenderness to palpation present (GI) (throughout lower abdomen mainly LLQ), No Guarding due to palpation present (GI) and No Rigid due to palpation : COMMON NORMALS: Yes no CVA tenderness BLADDER/KIDNEY EXAM: Yes no CVA tenderness Back/Pelvis: COMMON NORMALS: no CVA tenderness, thoracic and lumbar spine normal to inspection, no thoracic nor lumbar tenderness and thoraco-lumbar ROM normal Extremity: COMMON NORMALS: normal to inspection GENERAL: Yes normal exam except as noted Neuro: COMMON NORMALS: patient oriented x3 SENSORIUM/ORIENTATION: Yes alert, Yes oriented to person, Yes oriented to place and Yes oriented to time Skin: COMMON NORMALS: no rashes or lesions noted GENERAL SKIN EXAM: no rashes or lesions noted Course Vital Signs: Vital signs: Vital Signs Temperature 97.6 F 08/02/22 12:33 Pulse Rate 77 08/02/22 13:30 Blood Pressure 138/82 08/02/22 14:30 Pulse Oximetry 97 08/02/22 13:30 Oxygen Delivery Me thod Room Air 08/02/22 13:30 MDM - Abdominal Pain Medical Decision Making Patient appears in no acute distress. His blood work is nonactionable. CT scan showing no acute abdominal or pelvic findings. He will be allowed discharge with directions for follow-up with his primary care provider within a week or so for further evaluation. Return to ED precautions given. Lab Data 08/02/22 13:07 08/02/22 13:07 Labs/Radiology: Radiology Impressions Abdomen/Pelvis CT 08/02/22 13:04 IMPRESSION: 1. No acute abdominal or pelvic findings. 2. Diffuse fatty infiltration liver. 3. No hydronephrosis. 4. Normal sigmoid colon. Normal appendix in the RIGHT lower quadrant. Laboratory Results WBC 6.9 10^3/uL (4.0-10.0) 08/02/22 13:07 RBC 5.60 10^6/uL (4.1-5.3) H 08/02/22 13:07 Hgb 15.7 g/dL (11.7-16.6) 08/02/22 13:07 Hct 47.7 % (42.0-52.0) 08/02/22 13:07 MCV 85.2 fl (80-94) 08/02/22 13:07 MCH 28.0 pg (28.0-34.0) 08/02/22 13:07 MCHC 32.9 g/dL (30.0-36.0) 08/02/22 13:07 RDW 11.7 % (12.1-15.1) L 08/02/22 13:07 Plt Count 257 10^3/cmm (130-400) 08/02/22 13:07 MPV 11.0 fL (7.4-10.4) H 08/02/22 13:07 Neut % (Auto) 61.5 % 08/02/22 13:07 Lymph % (Auto) 27.3 % 08/02/22 13:07 [place] % (Auto) 6.9 % 08/02/22 13:07 Eos % (Auto) 3.2 % 08/02/22 13:07 Baso % (Auto) 1.0 % 08/02/22 13:07 Neut # (Auto) 4.22 10^3/uL (1.8-7.7) 08/02/22 13:07 Lymph # (Auto) 1.9 10^3/uL (0.8-4.8) 08/02/22 13:07 [place] # (Auto) 0.5 10^3/uL (0.2-0.9) 08/02/22 13:07 Eos # (Auto) 0.2 10^3/uL (0.0-0.8) 08/02/22 13:07 Baso # (Auto) 0.1 10^3/uL (0.0-0.1) 08/02/22 13:07 Nucleated RBC % (auto) 0 % 08/02/22 13:07 Nucleated RBCs # 0.0 /100WBC 08/02/22 13:07 Sodium 136 mmol/L (136-145) 08/02/22 13:07 Potassium 4.4 mmol/L (3.5-5.1) 08/02/22 13:07 Chloride 102 mmol/L (98-107) 08/02/22 13:07 Carbon Dioxide 25 mmol/L (22-29) 08/02/22 13:07 Anion Gap 13.4 (5-19) 08/02/22 13:07 BUN 11 mg/dL (6-20) 08/02/22 13:07 Creatinine 0.7 mg/dL (0.7-1.2) 08/02/22 13:07 GFR Calculation 134.3 mL/min (90-130) H 08/02/22 13:07 Glucose 102 mg/dL (65-115) 08/02/22 13:07 Calculated Osmolality 282 mOsm/kg (285-295) L 08/02/22 13:07 Lactic Acid 1.1 mmol/L (0.5-2.2) 08/02/22 13:07 Calcium 9.3 mg/dL (8.5-10.5) 08/02/22 13:07 Total Bilirubin 0.4 mg/dL (0.15-1.2) 08/02/22 13:07 AST 20 U/L (0-40) 08/02/22 13:07 ALT 45 U/L (0-41) H 08/02/22 13:07 Alkaline Phosphatase 51 U/L (40-130) 08/02/22 13:07 Total Protein 7.0 g/dL (6.6-8.7) 08/02/22 13:07 Albumin 4.1 g/dL (3.5-5.2) 08/02/22 13:07 Globulin 2.9 g/dL (1.3-4.6) 08/02/22 13:07 Lipase 28 U/L (13-60) 08/02/22 13:07 Urine Color Yellow (Yellow) 08/02/22 13:05 Urine Appearance Clear (CLEAR) 08/02/22 13:05 Urine pH 6 (5-7) 08/02/22 13:05 Ur Specific [place] 1.025 (1.005-1.030) 08/02/22 13:05 Urine Protein Neg (Negative) 08/02/22 13:05 Urine Glucose (UA) Norm (Normal) 08/02/22 13:05 Urine Ketones Negative (Negative) 08/02/22 13:05 Urine Blood Trace (Negative) H 08/02/22 13:05 Urine Nitrate Negative (Negative) 08/02/22 13:05 Urine Bilirubin Neg (Negative) 08/02/22 13:05 Urine Urobilinogen Norm mg/dL (Negative) 08/02/22 13:05 Ur Leukocyte Esterase Negative (Negative) 08/02/22 13:05 Urine RBC 0-4 /hpf (0-2) H 08/02/22 13:05 Urine WBC 0-4 /hpf (0-5) H 08/02/22 13:05 Ur Squamous Epith Cells 0-4 /hpf (0-5) H 08/02/22 13:05 Amorphous Sediment Not Reportable 08/02/22 13:05 Urine Bacteria Trace /hpf (NONE) 08/02/22 13:05 Discharge Plan Discharge Patient Disposition: Home Clinical Impression: Abdominal pain of unknown cause, Bright red blood per rectum Condition: Stable Prescriptions: No Action No Known Home Medications Discharge Orders: Discharge ED (Routine); Ordered 08/02/22 Ordered By: Ania Paz Referrals: Amada Wilson DO [Primary Care Provider] - Patient Instructions: Abdominal Pain (ED) Coding Level of Care Code ED Inspector Insulation for Eulalio Nathan
[2022-08-02 12:33] VITALS: TEMP 36.4
[2022-08-02 13:03] VITALS: BP 134/98; O2SAT 99
--- NOTE | 2022-08-02 13:04 | CT_ITS ---
WS: [id number] CT ABDOMEN PELVIS TECHNIQUE: Contrast-enhanced CT of the abdomen and pelvis with coronal and sagittal reformatted image s. CLINICAL INFORMATION: lower ab pain, bloody stools COMPARISON: 02 14 2022 DLP: 1360.[address] scans at [facility] use at least one of these dose optimization techniques: automated e xposure control; mA and/or kV adjustment per patient size (includes targeted exams where dose is matc hed to clinical indication); or iterative reconstruction. FINDINGS: Diffuse fatty infiltration liver. Normal spleen. Normal GE junction. Lung bases are well aerated. Nor mal pancreatic enhancement. Adrenal glands are normal. Normal renal parenchymal enhancement. No hydronephrosis. Upper abdominal a wen is normal. Normal celiac and SMA. Normal portal vein and splenic vein. No hydronephrosis in either kidney. Normal Sigmoid colon. Normal appendix in the RIGHT lower quadrant . No evidence of acute appendicitis. No free fluid in the pelvis. Normal lumbar spine. Tiny fat-conta ining umbilical hernia. CT/CT abdomen pelvis w con* [id number] IMPRESSION: 1. No acute abdominal or pelvic findings. 2. Diffuse fatty infiltration liver. 3. No hydronephrosis. 4. Normal sigmoid colon. Normal appendix in the RIGHT lower quadrant.
[2022-08-02 13:23] LABS: Basophils # 0.1 10^3/uL (0.0-0.1); Eosinophils # 0.2 10^3/uL (0.0-0.8); Eosinophils % 3.2 %; Hematocrit 47.7 % (42.0-52.0); Hemoglobin 15.7 g/dL (11.7-16.6); Lymphocytes # 1.9 10^3/uL (0.8-4.8); Lymphocytes % 27.3 %; Mean Corpuscular HGB Conc 32.9 g/dL (30.0-36.0); Mean Corpuscular Volume 85.2 fl (80-94); Monocytes # 0.5 10^3/uL (0.2-0.9); Monocytes % 6.9 %; Neutrophils # 4.22 10^3/uL (1.8-7.7); Neutrophils % 61.5 %; Nucleated Red Blood Cells % 0 %; Platelet Count 257 10^3/cmm (130-400); Red Cell Distribution Width 11.7 % (12.1-15.1); White Blood Count 6.9 10^3/uL (4.0-10.0)
[2022-08-02 13:30] VITALS: BP 142/79; PULSE 77; O2SAT 97
[2022-08-02 13:35] LABS: Alanine Aminotransferase 45 U/L (0-41); Albumin Level 4.1 g/dL (3.5-5.2); Alkaline Phosphatase 51 U/L (40-130); Anion Gap 13.4 (5-19); Aspartate Amino Transferase 20 U/L (0-40); Blood Urea Nitrogen 11 mg/dL (6-20); Calcium 9.3 mg/dL (8.5-10.5); Carbon Dioxide 25 mmol/L (22-29); Chloride 102 mmol/L (98-107); Globulin 2.9 g/dL (1.3-4.6); Glomerular Filtration Rate 134.3 mL/min (90-130); Glucose 102 mg/dL (65-115); Lipase 28 U/L (13-60); Osmolality Calculated 282 mOsm/kg (285-295); Potassium 4.4 mmol/L (3.5-5.1); Sodium 136 mmol/L (136-145); Total Bilirubin 0.4 mg/dL (0.15-1.2)
[2022-08-02 13:36] LABS: Lactic Sepsis W/Reflex 1.1 mmol/L (0.5-2.2)
[2022-08-02] MEDS: iohexol 350 mg/mL 500 mL Btl (per mL) IV (13:52)
[2022-08-02 14:08] LABS: Add Urine Microscopic? YES; Bilirubin Urine Neg (Negative); Blood Urine Trace (Negative); Glucose Urine UA Norm (Normal); Ketones Urine Negative (Negative); Leukocyte Esterase Urine Negative (Negative); Nitrate Urine Negative (Negative); Protein Urine Neg (Negative); Specific Gravity, Urine 1.025 (1.005-1.030); Urine Appearance Clear (CLEAR); Urine Color Yellow (Yellow); Urobilinogen Urine Norm (Negative); pH Urine 6 (5-7)
[2022-08-02 14:09] LABS: Bacteria Urine TRACE /hpf; RBC Urine 0-4 /hpf (0-2); Squamous Epithelial Cell Urine 0-4 /hpf (0-5); WBC Urine 0-4 /hpf (0-5)
[2022-08-02 14:30] VITALS: BP 138/82
[2022-08-02 14:48] VITALS: BP 138/82; PULSE 67; O2SAT 99
== END 2022-08-02 14:51 | disposition home or self-care (01) ==
PROVIDERS: Emergency Provider Physician Assistant; PCP Family Medicine
DX: R10.30 Lower abdominal pain, unspecified (principal); K62.5 Hemorrhage of anus and rectum; I10 Essential (primary) hypertension
CPT/HCPCS: 36415; 74177; 80053; 81001; 83605; 83690; 85025; 99285; Q9967

== ENCOUNTER 2022-12-16 17:15 | Emergency (ER) | payer SELFPAY ==
[2022-12-16] VITALS (7 sets, daily range): BP systolic 125–186; BP diastolic 85–147; PULSE 93–99; RESP 16–18; TEMP 36.6; O2SAT 97–99
--- NOTE | 2022-12-16 17:32 | ECG_ITS ---
[facility] Test Date: 2022-12-16 Pat Name: Octavio Dhaliwal Department: Room: Gender: Male Eye Surgeon: : 1995 Requested By: Ghulam Paulino Order Number: [id number] Elli MD: Dai Moffett M.D. Measurements Intervals [place] Rate: 93 P: 23 NH: 132 QRS: 29 QRSD: 99 T: 30 QT: 348 QTc: 435 Interpretive Statements SINUS RHYTHM Compared to ECG 07/06/2020 17:49:08 T-wave abnormality no longer present Electronically Signed On 12-16-2022 20:07:54 CDT by Dai Moffett M.D. [id number]
--- NOTE | 2022-12-16 17:32 | XRR_ITS ---
PROCEDURE INFORMATION: Exam: XR Chest Exam date and time: 12/16/2022 5:55 PM Age: 27 years old Clinical indication: Other: Tingling sensation; Additional info: Dyspnea/cough TECHNIQUE: Imaging protocol: Radiologic exam of the chest. Views: 1 view. COMPARISON: CR XR chest 1V portable [id number] 07/06/2020 3:46 PM FINDINGS: Lungs: Unremarkable. No consolidation. Pleural spaces: Unremarkable. No pleural effusion. No pneumothorax. Heart/Mediastinum: Unremarkable. No cardiomegaly. Bones/joints: Unremarkable. XR/XR chest 1V portable [id number] IMPRESSION: No acute findings.
--- NOTE | 2022-12-16 17:37 | ED_ITS ---
Documented by User: Ghulam Moulton DO 12/16/22 18:18 HPI - General Adult General: Chief complaint: General Medical Stated complaint: tingling hands and feet Time Seen by Provider: 12/16/22 17:29 Source: patient Mode of arrival: ambulatory History of Present Illness: 27-year-old male presents emergency room complaining numbness in his hands and feet. He has had episodes of dizziness with blurred vision. Blood pressure is markedly elevated on arrival patient admits he is not compliant with blood pressure medications. No chest pain no shortness of breath. Patient reports he previously was on metoprolol and another blood pressure medicine but he stopped sometime ago has not really started. He has not had any difficulty with speech gait or balance Onset (ago): minute(s) Relieving factors: none Exacerbating factors: none Associated symptoms: Deny chest pain, confusion, cough, diaphoresis, decreased appetite, dyspnea, fevers/chills, headache(s), malaise, nausea, rash, palpitations, seizures, short of breath, syncope, vomiting or weakness Treatments prior to arrival: none Review of Systems Const: Denies: fever(s), chills, malaise or diaphoresis Card: Denies: chest pain, palpitations or syncope Resp: Denies: dyspnea GI: Denies: abdominal pain, nausea or vomiting Skin/Breast: Denies: rash Neuro: Denies: headache(s) or confusion PFS ED PFSH: Medical History (Updated 12/16/22 @ 20:05 by Louie Grider DO) Asthma Chronic migraine Essential hypertension Surgical History No pertinent past surgical history Family History Other CAD (coronary artery disease) Cancer Diabetes Social History Smoking and tobacco status: never smoked Alcohol intake: former Year of sobriety/quit date alcohol: 2019 Former alcohol use details: [place] OR [place] Substance/Drug Use: never Current gender identity: Male Physical Exam Const: GENERAL APPEARANCE: cooperative and comfortable ORIENTATION/CONSCIOUSNESS: Yes awake, Yes oriented to person, Yes oriented to place and Yes oriented to time HENMT: COMMON NORMALS: normocephalic, atraumatic and hearing grossly normal bilaterally HEAD & SCALP: normocephalic and atraumatic Resp: COMMON NORMALS: normal respiratory effort, No retractions, No use of accessory muscles and clear to auscultation bilaterally AUSCULTATION: clear to auscultation bilaterally Cardio: COMMON NORMALS: regular rate, regular rhythm and No murmurs present (Cardio) RATE: regular rate RHYTHM: regular rhythm GI: COMMON NORMALS: Soft to palpation and No hepatosplenomegaly present AUSCULTATION: Yes normoactive bowel sounds PALPATION: Yes Soft to palpation, No Tenderness to palpation present (GI), No Guarding due to palpation present (GI) and Yes No hepatosplenomegaly present Extremity: COMMON NORMALS: normal to inspection, capillary refill normal, no clubbing, cyanosis or edema, no calf tenderness and no pedal edema Neuro: SENSORIUM/ORIENTATION: Yes oriented to person, Yes oriented to place and Yes oriented to time Skin: COMMON NORMALS: no rashes or lesions noted GENERAL SKIN EXAM: no rashes or lesions noted Course Vital Signs: Vital signs: Vital Signs Temperature 97.8 F 12/16/22 17:21 Pulse Rate 93 12/16/22 20:47 Respiratory Rate 16 12/16/22 20:47 Blood Pressure 125/85 12/16/22 20:47 Pulse Oximetry 98 12/16/22 20:47 Oxygen Delivery Me thod Room Air 12/16/22 19:28 MDM - General Adult Medical Decision Making Care signed out to Dr. Grider at change of shift. See final notes for diagnosis and disposition. Lab Data 12/16/22 17:46 12/16/22 17:46 Radiology Impressions Chest X-Ray 12/16/22 17:32 IMPRESSION: No acute findings. Head CT 12/16/22 18:58 IMPRESSION: 1. No acute intracranial abnormality. 2. Inflammatory changes in the paranasal sinuses. Laboratory Results WBC 5.49 10^3/uL (3.29-11.43) 12/16/22 17:46 RBC 5.51 10^6/uL (3.85-5.65) 12/16/22 17:46 Hgb 15.80 g/dL (11.27-16.99) 12/16/22 17:46 Hct 46.0 % (37-53) 12/16/22 17:46 MCV 83.5 fl (82-101) 12/16/22 17:46 MCH 28.7 pg (27-33) 12/16/22 17:46 MCHC 34.3 g/dL (30-55) 12/16/22 17:46 RDW 11.9 % (12.1-15.1) L 12/16/22 17:46 Plt Count 242 10^3/cmm (157-399) 12/16/22 17:46 MPV 11.1 fL (7.4-10.4) H 12/16/22 17:46 Neut % (Auto) 58.7 % 12/16/22 17:46 Lymph % (Auto) 29.0 % 12/16/22 17:46 [place] % (Auto) 7.8 % 12/16/22 17:46 Eos % (Auto) 3.6 % 12/16/22 17:46 Baso % (Auto) 0.7 % 12/16/22 17:46 Neut # (Auto) 3.22 10^3/uL (1.8-7.7) 12/16/22 17:46 Lymph # (Auto) 1.6 10^3/uL (0.8-4.8) 12/16/22 17:46 [place] # (Auto) 0.4 10^3/uL (0.2-0.9) 12/16/22 17:46 Eos # (Auto) 0.2 10^3/uL (0.0-0.8) 12/16/22 17:46 Baso # (Auto) 0.0 10^3/uL (0.0-0.1) 12/16/22 17:46 Nucleated RBC % (auto) 0 % 12/16/22 17:46 Nucleated RBCs # 0.0 /100WBC 12/16/22 17:46 Sodium 136 mmol/L (136-145) 12/16/22 17:46 Potassium 3.7 mmol/L (3.5-5.1) 12/16/22 17:46 Chloride 102 mmol/L (98-107) 12/16/22 17:46 Carbon Dioxide 25 mmol/L (22-29) 12/16/22 17:46 Anion Gap 12.7 (5-19) 12/16/22 17:46 BUN 12 mg/dL (6-20) 12/16/22 17:46 Creatinine 0.7 mg/dL (0.7-1.2) 12/16/22 17:46 GFR Calculation 133.3 mL/min (90-130) H 12/16/22 17:46 Glucose 113 mg/dL (65-115) 12/16/22 17:46 Calculated Osmolality 283 mOsm/kg (285-295) L 12/16/22 17:46 Calcium 8.6 mg/dL (8.5-10.5) 12/16/22 17:46 Total Bilirubin 0.5 mg/dL (0.15-1.2) 12/16/22 17:46 AST 26 U/L (0-40) 12/16/22 17:46 ALT 56 U/L (0-41) H 12/16/22 17:46 Alkaline Phosphatase 54 U/L (40-130) 12/16/22 17:46 Total Protein 7.0 g/dL (6.6-8.7) 12/16/22 17:46 Albumin 3.9 g/dL (3.5-5.2) 12/16/22 17:46 Globulin 3.1 g/dL (1.3-4.6) 12/16/22 17:46 Urine Color Yellow (Yellow) 12/16/22 18:37 Urine Appearance Clear (CLEAR) 12/16/22 18:37 Urine pH 5 (5-7) 12/16/22 18:37 Ur Specific [place] 1.020 (1.005-1.030) 12/16/22 18:37 Urine Protein Trace (Negative) 12/16/22 18:37 Urine Glucose (UA) Norm (Normal) 12/16/22 18:37 Urine Ketones 1+ (Negative) H 12/16/22 18:37 Urine Blood Neg (Negative) 12/16/22 18:37 Urine Nitrate Negative (Negative) 12/16/22 18:37 Urine Bilirubin Neg (Negative) 12/16/22 18:37 Urine Urobilinogen 1 mg/dL (Negative) H 12/16/22 18:37 Ur Leukocyte Esterase Negative (Negative) 12/16/22 18:37 Urine RBC Rare /hpf (0-2) 12/16/22 18:37 Urine WBC Rare /hpf (0-5) 12/16/22 18:37 Ur Squamous Epith Cells 5-10 /hpf (0-5) H 12/16/22 18:37 Amorphous Sediment 1+ /hpf 12/16/22 18:37 Urine Bacteria None /hpf (NONE) 12/16/22 18:37 Urine Mucus 1+ /hpf 12/16/22 18:37 XR interpretation done by ED provider, pending radiology final review Discharge Plan Discharge Patient Disposition: Home Clinical Impression: Hypertension Condition: Stable Prescriptions: New amlodipine 10 mg tablet 10 mg PO DAILY Qty: 30 0RF Discharge Orders: Discharge ED (Routine); Ordered 12/16/22 Ordered By: Louie Grider Referrals: Amada Wilson DO [Primary Care Provider] - 1-3 days Patient Instructions: Hypertension (ED) Activity Restrictions/Additional Instructions: Check your blood pressure twice daily. Report numbers to your doctor. Medication as directed. Return for any worsening or new concerning symptoms. Coding Level of Care Code ED Washer Off for Chg Fwd Documented by User: Louie Grider DO 12/17/22 01:12 HPI - General Adult General: Chief complaint: General Medical Stated complaint: tingling hands and feet Time Seen by Provider: 12/16/22 17:29 [facility] ED PFSH: Medical History (Updated 12/16/22 @ 20:05 by Louie Grider DO) Asthma Chronic migraine Essential hypertension Surgical History No pertinent past surgical history Family History Other CAD (coronary artery disease) Cancer Diabetes Social History Smoking and tobacco status: never smoked Alcohol intake: former Year of sobriety/quit date alcohol: 2020 Former alcohol use details: [place] OR [place] Substance/Drug Use: never Current gender identity: Male Course Vital Signs: Vital signs: Vital Signs Temperature 97.8 F 12/16/22 17:21 Pulse Rate 93 12/16/22 20:47 Respiratory Rate 16 12/16/22 20:47 Blood Pressure 125/85 12/16/22 20:47 Pulse Oximetry 98 12/16/22 20:47 Oxygen Delivery Me thod Room Air 12/16/22 19:28 [facility] - General Adult Medical Decision Making Care signed out to Dr. Grider at change of shift. See final notes for diagnosis and disposition. 27-year-old male here for high blood pressure. Blood pressure is beginning to improve after administration of labetalol hydralazine and amlodipine. He was also given lisinopril. His blood pressure is down now to 135/89. The patient's essentially asymptomatic except for some tingling in his palms and around his mouth. He has noticed that a rashes popped up in this area. Punctate erythematous nonraised rash. He notes that he was possibly exposed to xlse-gist-brh-mouth disease a few days prior. He states that the places where this rash is present, or where he is having the tingling symptoms. He denies any numbness. Clinical significance is unknown. In terms of his studies, his CBC and BMP are normal. Chest x-ray is negative. Head CT is negative, save some inflammatory changes in the sinuses. His urinalysis is negative. He will be allowed home. Lab Data 12/16/22 17:46 12/16/22 17:46 Radiology Impressions Chest X-Ray 12/16/22 17:32 IMPRESSION: No acute findings. Head CT 12/16/22 18:58 IMPRESSION: 1. No acute intracranial abnormality. 2. Inflammatory changes in the paranasal sinuses. Laboratory Results WBC 5.49 10^3/uL (3.29-11.43) 12/16/22 17:46 RBC 5.51 10^6/uL (3.85-5.65) 12/16/22 17:46 Hgb 15.80 g/dL (11.27-16.99) 12/16/22 17:46 Hct 46.0 % (37-53) 12/16/22 17:46 MCV 83.5 fl (82-101) 12/16/22 17:46 MCH 28.7 pg (27-33) 12/16/22 17:46 MCHC 34.3 g/dL (30-55) 12/16/22 17:46 RDW 11.9 % (12.1-15.1) L 12/16/22 17:46 Plt Count 242 10^3/cmm (157-399) 12/16/22 17:46 MPV 11.1 fL (7.4-10.4) H 12/16/22 17:46 Neut % (Auto) 58.7 % 12/16/22 17:46 Lymph % (Auto) 29.0 % 12/16/22 17:46 Cow[place] % (Auto) 7.8 % 12/16/22 17:46 Eos % (Auto) 3.6 % 12/16/22 17:46 Baso % (Auto) 0.7 % 12/16/22 17:46 Neut # (Auto) 3.22 10^3/uL (1.8-7.7) 12/16/22 17:46 Lymph # (Auto) 1.6 10^3/uL (0.8-4.8) 12/16/22 17:46 [place] # (Auto) 0.4 10^3/uL (0.2-0.9) 12/16/22 17:46 Eos # (Auto) 0.2 10^3/uL (0.0-0.8) 12/16/22 17:46 Baso # (Auto) 0.0 10^3/uL (0.0-0.1) 12/16/22 17:46 Nucleated RBC % (auto) 0 % 12/16/22 17:46 Nucleated RBCs # 0.0 /100WBC 12/16/22 17:46 Sodium 136 mmol/L (136-145) 12/16/22 17:46 Potassium 3.7 mmol/L (3.5-5.1) 12/16/22 17:46 Chloride 102 mmol/L (98-107) 12/16/22 17:46 Carbon Dioxide 25 mmol/L (22-29) 12/16/22 17:46 Anion Gap 12.7 (5-19) 12/16/22 17:46 BUN 12 mg/dL (6-20) 12/16/22 17:46 Creatinine 0.7 mg/dL (0.7-1.2) 12/16/22 17:46 GFR Calculation 133.3 mL/min (90-130) H 12/16/22 17:46 Glucose 113 mg/dL (65-115) 12/16/22 17:46 Calculated Osmolality 283 mOsm/kg (285-295) L 12/16/22 17:46 Calcium 8.6 mg/dL (8.5-10.5) 12/16/22 17:46 Total Bilirubin 0.5 mg/dL (0.15-1.2) 12/16/22 17:46 AST 26 U/L (0-40) 12/16/22 17:46 ALT 56 U/L (0-41) H 12/16/22 17:46 Alkaline Phosphatase 54 U/L (40-130) 12/16/22 17:46 Total Protein 7.0 g/dL (6.6-8.7) 12/16/22 17:46 Albumin 3.9 g/dL (3.5-5.2) 12/16/22 17:46 Globulin 3.1 g/dL (1.3-4.6) 12/16/22 17:46 Urine Color Yellow (Yellow) 12/16/22 18:37 Urine Appearance Clear (CLEAR) 12/16/22 18:37 Urine pH 5 (5-7) 12/16/22 18:37 Ur Specific [place] 1.020 (1.005-1.030) 12/16/22 18:37 Urine Protein Trace (Negative) 12/16/22 18:37 Urine Glucose (UA) Norm (Normal) 12/16/22 18:37 Urine Ketones 1+ (Negative) H 12/16/22 18:37 Urine Blood Neg (Negative) 12/16/22 18:37 Urine Nitrate Negative (Negative) 12/16/22 18:37 Urine Bilirubin Neg (Negative) 12/16/22 18:37 Urine Urobilinogen 1 mg/dL (Negative) H 12/16/22 18:37 Ur Leukocyte Esterase Negative (Negative) 12/16/22 18:37 Urine RBC Rare /hpf (0-2) 12/16/22 18:37 Urine WBC Rare /hpf (0-5) 12/16/22 18:37 Ur Squamous Epith Cells 5-10 /hpf (0-5) H 12/16/22 18:37 Amorphous Sediment 1+ /hpf 12/16/22 18:37 Urine Bacteria None /hpf (NONE) 12/16/22 18:37 Urine Mucus 1+ /hpf 12/16/22 18:37 Discharge Plan Discharge Patient Disposition: Home Clinical Impression: Hypertension Condition: Stable Prescriptions: New amlodipine 10 mg tablet 10 mg PO DAILY Qty: 30 0RF Discharge Orders: Discharge ED (Routine); Ordered 12/16/22 Ordered By: Louie Grider Referrals: Amada Wilson DO [Primary Care Provider] - 1-3 days Patient Instructions: Hypertension (ED) Activity Restrictions/Additional Instructions: Check your blood pressure twice daily. Report numbers to your doctor. Medication as directed. Return for any worsening or new concerning symptoms. Coding Level of Care Code ED Washer Off for Eulalio Nathan
[2022-12-16] MEDS: hyDRALAzine 20 mg/mL INJ 1 mL 10 MG IVP (17:47)
[2022-12-16] MEDS: amlodipine 10 mg Tablet PO (17:47)
[2022-12-16] MEDS: labetalol 5 mg/mL SDV 20mL 10 MG IVP ×2 (17:47→18:34)
[2022-12-16 17:59] LABS: Basophils % 0.7 %; Eosinophils # 0.2 10^3/uL (0.0-0.8); Eosinophils % 3.6 %; Lymphocytes # 1.6 10^3/uL (0.8-4.8); Mean Corpuscular HGB Conc 34.3 g/dL (30-55); Mean Corpuscular Hemoglobin 28.7 pg (27-33); Mean Corpuscular Volume 83.5 fl (82-101); Mean Platelet Volume 11.1 fL (7.4-10.4); Monocytes # 0.4 10^3/uL (0.2-0.9); Monocytes % 7.8 %; Neutrophils # 3.22 10^3/uL (1.8-7.7); Neutrophils % 58.7 %; Nucleated Red Blood Cells % 0 %; Platelet Count 242 10^3/cmm (157-399); Red Blood Count 5.51 10^6/uL (3.85-5.65); Red Cell Distribution Width 11.9 % (12.1-15.1); White Blood Count 5.49 10^3/uL (3.29-11.43)
[2022-12-16 18:23] LABS: Alanine Aminotransferase 56 U/L (0-41); Albumin Level 3.9 g/dL (3.5-5.2); Alkaline Phosphatase 54 U/L (40-130); Anion Gap 12.7 (5-19); Aspartate Amino Transferase 26 U/L (0-40); Blood Urea Nitrogen 12 mg/dL (6-20); Calcium 8.6 mg/dL (8.5-10.5); Carbon Dioxide 25 mmol/L (22-29); Chloride 102 mmol/L (98-107); Globulin 3.1 g/dL (1.3-4.6); Glomerular Filtration Rate 133.3 mL/min (90-130); Glucose 113 mg/dL (65-115); Osmolality Calculated 283 mOsm/kg (285-295); Potassium 3.7 mmol/L (3.5-5.1); Sodium 136 mmol/L (136-145); Total Bilirubin 0.5 mg/dL (0.15-1.2)
--- NOTE | 2022-12-16 18:51 | PC.NURSE ---
Report taken from ROXANNA Scherer at this time.
--- NOTE | 2022-12-16 18:58 | CTR_ITS ---
PROCEDURE INFORMATION: Exam: CT Head Without Contrast Exam date and time: 12/16/2022 7:13 PM Age: 27 years old Clinical indication: Dizziness and numbness / parasthesia; Bilateral; Patient HX: C/O dizziness with numbness tingling to both hands and feet. ; Additional info: Dizzy, paresthesias TECHNIQUE: Imaging protocol: Computed tomography of the head without contrast. Radiation optimization: All CT scans at this facility use at least one of these dose optimization techniques: automated exposure control; mA and/or kV adjustment per patient size (includes targeted exams where dose is matched to clinical indication); or iterative reconstruction. REPORTING DATA: Count of CT and Cardiac NM exams in prior 12 months: This patient has received 3 known CTs and 0 known cardiac nuclear medicine studies in the 12 months prior to the current study. COMPARISON: CT head wo con* [id number] 05/03/2020 2:18 PM RADIATION DOSE METRICS: Total DLP (mGy-cm): 1015.78 FINDINGS: Brain: Normal. No hemorrhage. Unremarkable white matter. No mass effect. Cerebral ventricles: No ventriculomegaly. Paranasal sinuses: Polyp or retention cyst in the left maxillary sinus. Mucosal thickening in the frontal sinuses and bilateral ethmoid air cells. Mastoid air cells: Visualized mastoid air cells are well aerated. Bones/joints: Unremarkable. No acute fracture. Soft tissues: Unremarkable. CT/CT head wo con* [id number] IMPRESSION: 1. No acute intracranial abnormality. 2. Inflammatory changes in the paranasal sinuses.
[2022-12-16 19:12] LABS: Slide Review Slide Review Perform
[2022-12-16] MEDS: lisinopril 20 mg Tablet PO (19:27)
[2022-12-16 19:48] LABS: Add Urine Microscopic? YES; Bilirubin Urine Neg (Negative); Blood Urine Neg (Negative); Glucose Urine UA Norm (Normal); Ketones Urine 1+ (Negative); Leukocyte Esterase Urine Negative (Negative); Nitrate Urine Negative (Negative); Protein Urine Trace (Negative); Urine Appearance Clear (CLEAR); Urine Color Yellow (Yellow); Urobilinogen Urine 1 mg/dL (Negative); pH Urine 5 (5-7)
[2022-12-16 19:49] LABS: Add Urine Culture? No; Amorphous Sediment Urine 1+ /hpf; Mucus Urine 1+ /hpf; RBC Urine RARE /hpf (0-2); WBC Urine RARE /hpf (0-5)
== END 2022-12-16 20:52 | disposition home or self-care (01) ==
PROVIDERS: Family Medicine; Emergency Provider Emergency Medicine; PCP Family Medicine
DX: I10 Essential (primary) hypertension (principal)
CPT/HCPCS: 70450; 71045; 80053; 81001; 85025; 93005; 96374; 96375; 96376; 99285; J0360; J3490

== ENCOUNTER → 2023-04-17 15:38 | Outpatient (BNVA) | payer SELFPAY | PROVIDERS: PCP Family Medicine; Visit Provider Family Medicine | DX: I10 Essential (primary) hypertension (principal) | CPT/HCPCS: 80053; 80061 ==

== ENCOUNTER → 2023-10-19 10:52 | Outpatient (BNVA) | payer SELFPAY | PROVIDERS: PCP Family Medicine; Visit Provider Family Medicine | DX: I10 Essential (primary) hypertension (principal); R73.9 Hyperglycemia, unspecified | CPT/HCPCS: 80053; 80061; 83036; 85025 ==